=== PATIENT | male | born 1945 | race Caucasian/White ===

== ENCOUNTER 2016-12-30 10:26 | Inpatient (IN) | payer MEDICARE, OTHER ==
[~2016-12-30] VITALS: Ht 172.7 cm; Wt 96.0 kg
[~2016-12-30 10:26] MED LIST: ALLO300T2 PO; AMLO-147 PO; BENA20TA48 PO; FENO145T19 PO; FLUT16SP17 NASAL; FURO20TA3 PO; OMEG1CAP90 PO; SIMV20TA PO; SPIR25TA PO; WARF4TAB52 PO
[2016-12-30 12:12] LABS: ADD SCAN DIFF NO
[2016-12-30] MEDS ORDERED: FENO145T25 PO (12:21)
[2016-12-30] MEDS ORDERED: BENA5TAB2 PO (12:22)
[2016-12-30] MEDS ORDERED: FURO40TA4 PO (12:22)
[2016-12-30] MEDS ORDERED: METO50TA16 PO (12:23)
[2016-12-30 12:24] LABS: INR 1.78; PROTIME 20.9 Sec (12.2-14.2); PT RATIO 1.6
[2016-12-30] MEDS ORDERED: DIGO125T6 PO (12:24)
[2016-12-30 12:25] LABS: ABNORMAL IP MESSAGE 1; BASOPHILS % 0.8 % (0.0-2.0); EOSINOPHILS # 0.1 10^3/ul (0.0-0.5); HEMATOCRIT 40.2 % (42.0-52.0); HEMOGLOBIN 10.6 g/dl (14.0-18.0); LYMPHOCYTES # 1.3 10^3/ul (0.8-2.9); LYMPHOCYTES % 27.7 % (15.0-51.0); MEAN CORPUSCULAR HEMOGLOBIN 16.3 pg (29.0-33.0); MEAN CORPUSCULAR HGB CONC 26.4 g/dl (32.0-37.0); MEAN CORPUSCULAR VOLUME 61.8 fl (82.0-101.0); MEAN PLATELET VOLUME 9.2 fl (7.4-10.4); MONOCYTE # 0.4 10^3/ul (0.3-0.9); MONOCYTES % 8.6 % (0.0-11.0); NEUTROPHIL # 2.9 10^3/ul (1.6-7.5); NEUTROPHILS % 61.3 % (39.0-77.0); PARTIAL THROMBOPLASTIN TIME 33.4 Sec (25.0-35.0); PLATELET COUNT 195 10^3/UL (140-415); RED CELL DISTRIBUTION WIDTH 22.4 % (11.5-14.5); WHITE BLOOD COUNT 4.8 10^3/ul (4.8-10.8)
[2016-12-30] MEDS ORDERED: BENA20TA48 PO (12:25)
--- NOTE | 2016-12-30 12:26 | RADRPT ---
PROCEDURE: XR Chest. CLINICAL INDICATION: Chest Pain. TECHNIQUE: Single frontal view of the chest was obtained. COMPARISON: Chest x-ray from 06/16/2016 FINDINGS: Severe cardiomegaly is again noted as well as a large right pleural effusion with aeration of only t he right lung apex noted. Underlying atelectasis and / or infiltrate in the right lung cannot be ex cluded. There is a retrocardiac opacity due to atelectasis, infiltrate, and / or effusion. There is prominence of interstitial markings consistent with mild congestive changes. IMPRESSION: Large right pleural effusion. Retrocardiac opacity due to atelectasis, infiltrate, and / or effusion. Stable severe cardiomegaly and mild congestive changes. RPTAT: EE Physician Desire Date Time Electronically viewed and signed by Navarro Elizabeth Physician on 12/30/2016 12:26 /
[2016-12-30 12:28] LABS: ALANINE AMINOTRANSFERASE 31 IU/L (13-69); ALBUMIN 3.7 g/dl (3.3-4.9); ALBUMIN/GLOBULIN RATIO 1.42; ALKALINE PHOSPHATASE 101 IU/L (42-121); ANION GAP 8 (8-16); ASPARTATE AMINO TRANSFERASE 26 IU/L (15-46); BILIRUBIN,INDIRECT 0.3 mg/dl (0-1.1); BILIRUBIN,TOTAL 0.3 mg/dl (0.2-1.3); BLOOD UREA NITROGEN 31 mg/dl (7-20); CALCIUM 8.8 mg/dl (8.4-10.2); CARBON DIOXIDE 28 mmol/L (21-31); CHLORIDE 105 mmol/L (97-110); CREATININE 1.18 mg/dl (0.61-1.24); GLUCOSE 128 mg/dl (70-220); POTASSIUM 4.2 mmol/L (3.5-5.1); SODIUM 137 mmol/L (135-144); TOTAL PROTEIN 6.3 g/dl (6.1-8.1)
[2016-12-30 12:39] LABS: B-TYPE NATRIURETIC PEPTIDE 4460 PG/ML (0-125)
[2016-12-30 12:57] LABS: TROPONIN-I < 0.012 ng/ml (0.00-0.12)
[2016-12-30] MEDS ORDERED: WARF5TAB72 PO (13:15)
--- NOTE | 2016-12-30 13:32 | ERA ---
ER Documentation Chief Complaint Date/Time DATE: 12/30/16 TIME: 13:27 Chief Complaint SOB, AND ABDOMINAL BLOATING [id number] HPI This is a 71-year-old alcoholic who is here for gradual worsening of shortness of breath over the past 2-3 weeks. States she is having some dyspnea on exertion and orthopnea. He has no chest pain no fever no cough no abdominal pain no nausea vomiting diarrhea. ROS All systems reviewed and are negative except as per history of present illness. Medications Home Meds Reported Medications Warfarin Sodium* (Coumadin*) 5 Mg Tablet, 5 MG PO DAILY, TAB 12/30/16 Benazepril Hcl* (Benazepril Hcl*) 20 Mg Tablet, 20 MG PO DAILY, #30 TAB 12/30/16 Digoxin* (Lanoxin*) 0.125 Mg Tablet, 0.125 MG PO DAILY, TAB 12/30/16 Metoprolol Succinate* (Toprol XL*) 50 Mg Tab.er.24h, 50 MG PO DAILY, #30 TAB 12/30/16 Furosemide* (Furosemide*) 40 Mg Tablet, 40 MG PO DAILY, TAB 12/30/16 Fenofibrate Nanocrystallized* (Tricor*) 145 Mg Tablet, 160 MG PO DAILY, TAB 12/30/16 Amlodipine Besylate* (Amlodipine Besylate*) 10 Mg Tablet, 10 MG PO DAILY, #30 TAB 06/12/16 Allopurinol* (Allopurinol*) 300 Mg Tablet, 300 MG PO DAILY, TAB 06/12/16 Simvastatin* (Zocor*) 20 Mg Tablet, 20 MG PO QHS, #30 TAB 06/12/16 [place]-3 Fatty Acids/Fish Oil ([place] 3 1,000 mg Softgel) 1 Each Capsule, 2000 CAP PO BID, CAP 06/12/16 Discontinued Reported Medications Benazepril Hcl* (Benazepril Hcl*) 5 Mg Tablet, 5 MG PO DAILY, #30 TAB 12/30/16 Fluticasone Propionate* (Fluticasone Propionate* Nasal) 50 Mcg/Whitney - 16 Gm Whitney.susp, 1 SPRAY NASAL DAILY, #1 BOTTLE TO EACH NOSTRIL 06/12/16 Fenofibrate Nanocrystallized* (Fenofibrate*) 145 Mg Tablet, 145 MG PO DAILY, TAB 06/12/16 Benazepril Hcl* (Benazepril Hcl*) 20 Mg Tablet, 20 MG PO DAILY, #30 TAB 06/12/16 Discontinued Scripts Spironolactone* (Aldactone*) 25 Mg Tablet, 100 MG PO DAILY@06 for 30 Days, TAB Prov:SKYLA FINK 06/16/16 Warfarin Sodium* (Warfarin Sodium*) 4 Mg Tablet, 6 MG PO DAILY, #15 TAB Prov:JERRY BANKS MD 06/15/16 Furosemide* (Furosemide*) 20 Mg Tablet, 40 MG PO DAILY, #30 TAB Prov:JERRY BANKS MD 06/15/16 Allergies Allergies: Coded Allergies: No Known Allergy (Unverified , 12/30/16) PMhx/Soc History of Surgery: No Anesthesia Reaction: No Hx Neurological Disorder: No Hx Respiratory Disorders: No Hx Cardiac Disorders: Yes (CHF) Hx Psychiatric Problems: No Hx Miscellaneous Medical Probl: No Hx Alcohol Use: Yes Hx Substance Use: No Hx Tobacco Use: No Smoking Status: Never smoker FmHx Family History: No coronary disease Physical Exam Vitals Vital Signs Date Time Temp Pulse Resp B/P Pulse Ox O2 Delivery O2 Flow Rate FiO2 12/30/16 11:47 Nasal Cannula 2 12/30/16 10:40 97.7 73 24 151/67 90 Physical Exam Const: Well-developed, well-nourished Head: Atraumatic, normocephalic Eyes: Normal Conjunctiva, PERRLA, EOMI, normal sclera, no nystagmus ENT: Normal External Ears, Nose and Mouth, moist mucus membranes. Neck: Full range of motion. No meningismus, no lymphadenopathy. Resp: No increased work of breathing or respiratory distress there are no breath sounds in the right lung left is clear] Cardio: Regular rate and rhythm, no murmurs, S1 S2 present Abd: Soft, non tender x 4, non distended. Normal bowel sounds, no guarding or rebound, no pulsitile abdominal masses or bruits Skin: No petechiae or rashes, no ecchymosis , no maculopapular rash Back: No midline or flank tenderness Ext: No cyanosis, or edema, FROM x 4, normal inspection, neurovascularly intact x 4 Neur: Awake and alert, STR 5/5 x 4, sensation intact x 4, no focal findings, cerebellum intact Psych: Normal Mood and Affect Result Diagram: 12/30/16 1147 12/30/16 1147 Results 24 hrs Laboratory Tests Test 12/30/16 11:47 White Blood Count 4.810^3/ul Red Blood Count 6.5010^6/ul Hemoglobin 10.6g/dl Hematocrit 40.2% Mean Corpuscular Volume 61.8fl Mean Corpuscular Hemoglobin 16.3pg Mean Corpuscular Hemoglobin Concent 26.4g/dl Red Cell Distribution Width 22.4% Platelet Count 04555^3/UL Mean Platelet Volume 9.2fl Neutrophils % 61.3% Lymphocytes % 27.7% Monocytes % 8.6% Eosinophils % 1.0% Basophils % 0.8% Nucleated Red Blood Cells % 0.0/100WBC Neutrophils # 2.910^3/ul Lymphocytes # 1.310^3/ul Monocytes # 0.410^3/ul Eosinophils # 0.110^3/ul Basophils # 0.010^3/ul Nucleated Red Blood Cells # 0.010^3/ul Prothrombin Time 20.9Sec Prothrombin Time Ratio 1.6 INR International Normalized Ratio 1.78 Activated Partial Thromboplast Time 33.4Sec Sodium Level 137mmol/L Potassium Level 4.2mmol/L Chloride Level 105mmol/L Carbon Dioxide Level 28mmol/L Anion Gap 8 Blood Urea Nitrogen 31mg/dl Creatinine 1.18mg/dl Glucose Level 128mg/dl Calcium Level 8.8mg/dl Total Bilirubin 0.3mg/dl Direct Bilirubin 0.00mg/dl Indirect Bilirubin 0.3mg/dl Aspartate Amino Transf (AST/SGOT) 26IU/L Alanine Aminotransferase (ALT/SGPT) 31IU/L Alkaline Phosphatase 101IU/L Troponin I < 0.012ng/ml B-Type Natriuretic Peptide 4460PG/ML Total Protein 6.3g/dl Albumin 3.7g/dl Globulin 2.60g/dl Albumin/Globulin Ratio 1.42 Procedures/MDM PROCEDURE: XR Chest. CLINICAL INDICATION: Chest Pain. TECHNIQUE: Single frontal view of the chest was obtained. COMPARISON: Chest x-ray from 06/16/2016 FINDINGS: Severe cardiomegaly is again noted as well as a large right pleural effusion with aeration of only the right lung apex noted. Underlying atelectasis and / or infiltrate in the right lung cannot be excluded. There is a retrocardiac opacity due to atelectasis, infiltrate, and / or effusion. There is prominence of interstitial markings consistent with mild congestive changes. IMPRESSION: Large right pleural effusion. Retrocardiac opacity due to atelectasis, infiltrate, and / or effusion. Stable severe cardiomegaly and mild congestive changes. RPTAT: EE Navarro Elizabeth Physician Date Time Electronically viewed and signed by Navarro Elizabeth Physician on 12/30/2016 12:26 RA/ CC: RERE BRISCOE DO EKG: Rate/Rhythm: Atrial fibrillation with PVCs, right axis deviation QRS, ST, QT: NORMAL IL, QRS, QT] Impression: Atrial fibrillation Patient has a large right pleural effusion and alcohol abuse. The effusion is probably from the liver/hydrothorax. We will admit the patient for pleuracentesis further workup Departure Diagnosis: Primary Impression: Recurrent right pleural effusion Condition: Stable RERE BRISCOE DO Dec 30, 2016 13:32
[2016-12-30] MEDS ORDERED: ONDANSETRON 4 MG INJ IV PRN (14:00)
[2016-12-30] MEDS ORDERED: ACETAMINOPHEN 325 MG TAB PO PRN ×2 (14:00→16:30)
[2016-12-30] MEDS ORDERED: ONDANSETRON 4 MG TAB PO PRN (16:30)
[2016-12-30] MEDS ORDERED: NITROGLYCERIN (SL) 0.4 MG TAB SL PRN (16:30)
[2016-12-30] MEDS ORDERED: NACL 0.9% 3 ML SYG IV SCH (16:30)
[2016-12-30] MEDS ORDERED: morphine 2 MG INJ IV PRN (16:30)
[2016-12-30] MEDS ORDERED: LORAZEPAM 0.5 MG TAB PO PRN (16:30)
[2016-12-30] MEDS ORDERED: BISACODYL (EC) 5 MG TAB PO PRN (16:30)
[2016-12-30] MEDS ORDERED: DOCUSATE SODIUM 100 MG CAP PO PRN (16:30)
[2016-12-30] MEDS: CEFTRIAXONE 1 GM/50 ML (PMX) 50 ML IVPB SCH (17:11)
[2016-12-30] MEDS ORDERED: ALBUTEROL/IPRATROPIUM (NEB) 3 ML AMP HHN PRN (17:30)
[2016-12-30 18:06] VITALS: Ht 172.7 cm; Wt 96.0 kg
--- NOTE | 2016-12-30 18:08 | HP ---
DATE OF ADMISSION: 12/30/2016 CONSULTANTS: 1. Dr. Pritesh Garcia 2. Dr. John Craig. CHIEF COMPLAINT: Shortness of breath. HISTORY OF PRESENT ILLNESS: This is a 71-year-old gentleman with past medical history of asthma, al cohol dependency, congestive heart failure, essential hypertension, gout, atrial fibrillation, dysli pidemia and chronic anticoagulation, who presents to [facility] secondary to havin g gradual worsening of shortness of breath x2 to 3 weeks. According to the patient's son-in-law, th e patient has been drinking 3 to 4 big cans of beers every day and has been having worsening of dysp keira on exertion, orthopnea and paroxysmal nocturnal dyspnea. The patient denies having any chest pa ins, fever, cough, abdominal pain, nausea, vomiting, diarrhea, or any other discomfort. Upon arrival to emergency room, a chest x-ray was obtained which demonstrated a large right pleural effusion, retrocardiac opacity due to atelectasis/infiltrate or effusion, stable severe cardiomegaly with mild congestive changes. [facility] and showed normal left ventricular systolic function, norm al left ventricular cavity size, moderate concentric left ventricular hypertrophy, ejection fraction of 55%, normal right ventricular size, severe enlargement of the left and right atrium with mild mi tral valve regurgitation, estimated peak PA systolic pressure of 49 mmHg, with a normal pericardium. Today, the patient was treated with breathing treatment, and pulmonology and cardiology have been consulted at this time. At this time, the patient continues to complain of having shortness of sobia th with worsening of his breathing status while he is lying in the supine position. PAST MEDICAL AND SURGICAL HISTORY: As above per HPI. MEDICATIONS: 1. Allopurinol. 2. Amlodipine. 3. Benazepril. 4. Digoxin. 5. Tricor. 6. Lasix. 7. Metoprolol succinate. 8. [place]-3. 9. Zocor. 10. Coumadin. ALLERGIES: NO KNOWN DRUG ALLERGIES. FAMILY HISTORY: Noncontributory. SOCIAL HISTORY: Positive for history of smoking half a pack of cigarettes per day. Positive for hi story of alcohol use, 3 to 4 big cans of beer per day. No illicit drugs. REVIEW OF SYSTEMS: As above per HPI. Otherwise, 12-point review of systems was found to be negativ e. PHYSICAL EXAMINATION: VITAL SIGNS: Temperature 97.7, pulse 70, respirations 25, blood pressure 149/83, oxygen saturation 93% on 2 liters via nasal cannula. GENERAL: The patient is lying in bed comfortably without any distress. He is awake, alert, oriente d. He is able to answer my questions properly. Body habitus mildly overweight. EYES AND ENT: Conjunctivae and lids are normal. Pupils are normal. Extraocular normal. Hearing g rossly normal. Lips, teeth and gums are normal. Oral mucosa is mildly dry. NECK: Supple. Trachea is midline. No lymphadenopathy. RESPIRATORY: Effort is normal. Decreased breath sounds bilateral lower lung carrasco, right greater than left, positive for rales, rhonchi. CARDIOVASCULAR: Normal S1, S2. Irregular rhythm and rate. Trace bilateral lower extremity edema. GASTROINTESTINAL: Abdomen is soft, nontender, not distended. Bowel sounds present. No guarding, n o rebound. GENITOURINARY: Deferred. MUSCULOSKELETAL: Upper and lower extremities within normal limits. NEUROLOGIC: Cranial nerves II through XII are grossly intact. PSYCHIATRIC: Normal judgment and insight. Alert and oriented x3. Mood and affect is normal. LABORATORY DATA: WBC 4.8, hemoglobin 10.6, hematocrit 40.2, platelets 195, MCV 61.8. Sodium 137, p otassium 4.2, chloride 104, bicarbonate 28, BUN 31, creatinine 1.18, glucose 128, calcium 8.8. LFTs are within normal limits. Troponin negative. BNP 4460. Chest x-ray: Right-sided pleural effusion. ASSESSMENT AND PLAN: 1. Shortness of breath likely secondary to chronic obstructive pulmonary disease exacerbation versu s congestive heart failure exacerbation with a history of alcohol abuse. 2. Congestive heart failure exacerbation. Cardiology has been consulted. This could be secondary to fluid overload. We will place the patient on IV Lasix. Follow cardiology recommendation. 3. Microcytic anemia. Follow up iron panel. Follow up CBC in a.m. 4. Essential hypertension, well controlled on medical management. Continue benazepril. amlodipin e, and metoprolol. 5. Atrial fibrillation, rate controlled on metoprolol and digoxin. At this time, we will hold Coum chip secondary to possible upcoming procedure. We will place the patient on Lovenox. 6. Gout. Continue allopurinol. 7. Dyslipidemia. Continue statin. 8. We will continue to monitor patient closely. Further recommendations, management and treatment as per clinical course. 9. For history of alcoholism, education was provided. The patient has been started on folic acid, thiamine and multivitamin. Dictated By: EFE NUNES/ADEN Conf#: [id number] DID#: [id number]
[2016-12-30] MEDS: LEVOFLOXACIN 500MG/D5W (PMX) 100 ML IVPB SCH (18:23)
[2016-12-30] MEDS: FUROSEMIDE 20 MG INJ IV SCH (18:33)
[2016-12-30 18:56] LABS: CK-MB 2.34 ng/ml (0.0-2.4)
[2016-12-30 18:57] LABS: TROPONIN-I 0.014 ng/ml (0.00-0.12)
[2016-12-30 20:15] VITALS: BP 148/68; RESP 20
[2016-12-30] MEDS: FISH OIL 1,000 MG CAP PO SCH (20:55)
[2016-12-30] MEDS: ATORVASTATIN 10 MG TAB PO SCH (20:55)
[2016-12-30] MEDS: ENOXAPARIN 40 MG/0.4 ML SYG SC SCH (20:56)
[2016-12-30] MEDS: SALMETEROL/FLUTICASONE 250/50 INHA INH SCH (21:52)
[2016-12-31 00:37] LABS: TROPONIN-I 0.013 ng/ml (0.00-0.12)
[2016-12-31 00:42] LABS: CK-MB 2.07 ng/ml (0.0-2.4)
[2016-12-31] MEDS: PANTOPRAZOLE (EC) 40 MG TAB PO SCH (05:56)
[2016-12-31] MEDS: FUROSEMIDE 20 MG INJ IV SCH (06:03)
--- NOTE | 2016-12-31 07:03 | RADRPT ---
PROCEDURE: XR Chest. CLINICAL INDICATION: Pleural effusion TECHNIQUE: Portable single view of the chest COMPARISON: 12/30 FINDINGS: Lung volumes are slightly improved. Enlarged cardiopericardial silhouette, pulmonary vascular conge stion and probable interstitial edema again seen diffuse alveolar infiltrate or edema of the right m id to lower lung zone. At least moderate right pleural effusion. Improved left lower lobe aeration with no visible left pleural effusion. Degenerative change of the spine. IMPRESSION: Slightly improved lung volumes are improved left lower lobe aeration. Otherwise stable exam. RPTAT: HLBE Physician Lisa Date Time Electronically viewed and signed by Aretha Ceja Physician on 12/31/2016 07:02 LE/
[2016-12-31 07:48] LABS: ADD SCAN DIFF NO
[2016-12-31 07:57] LABS: ABNORMAL IP MESSAGE 1; BASOPHILS % 0.4 % (0.0-2.0); EOSINOPHILS % 0.6 % (0.0-7.0); HEMATOCRIT 40.7 % (42.0-52.0); HEMOGLOBIN 10.6 g/dl (14.0-18.0); LYMPHOCYTES % 20.2 % (15.0-51.0); MEAN CORPUSCULAR HEMOGLOBIN 16.2 pg (29.0-33.0); MEAN CORPUSCULAR VOLUME 62.3 fl (82.0-101.0); MONOCYTE # 0.4 10^3/ul (0.3-0.9); MONOCYTES % 8.2 % (0.0-11.0); NEUTROPHIL # 3.6 10^3/ul (1.6-7.5); NUCLEATED RED BLOOD CELLS% 0.4 /100WBC (0.0-0.0); PLATELET COUNT 182 10^3/UL (140-415); RED BLOOD COUNT 6.53 10^6/ul (4.70-6.10); RED CELL DISTRIBUTION WIDTH 22.5 % (11.5-14.5); WHITE BLOOD COUNT 5.1 10^3/ul (4.8-10.8)
[2016-12-31 08:00] VITALS: BP 168/74; RESP 24
[2016-12-31 08:14] LABS: INR 1.73; PROTIME 20.4 Sec (12.2-14.2); PT RATIO 1.6
[2016-12-31 08:18] LABS: IRON 13 ug/dl (35-150)
[2016-12-31 08:28] LABS: TOTAL IRON BINDING CAPACITY 403 ug/dl (241-421)
[2016-12-31 08:31] LABS: TROPONIN-I 0.022 ng/ml (0.00-0.12)
[2016-12-31 08:32] LABS: CK-MB 1.71 ng/ml (0.0-2.4)
[2016-12-31] MEDS ORDERED: AMLODIPINE 10 MG TAB PO SCH (09:00)
[2016-12-31] MEDS ORDERED: FUROSEMIDE 40 MG TAB PO SCH (09:00)
[2016-12-31] MEDS: ENOXAPARIN 40 MG/0.4 ML SYG SC SCH ×2 (09:00→20:12)
[2016-12-31] MEDS ORDERED: BENAZEPRIL 20 MG TAB PO SCH (09:00)
[2016-12-31 09:07] LABS: POTASSIUM 4.1 mmol/L (3.5-5.1)
[2016-12-31 09:09] LABS: CREATININE 0.99 mg/dl (0.61-1.24)
[2016-12-31] MEDS: FISH OIL 1,000 MG CAP PO SCH ×2 (09:09→20:11)
[2016-12-31] MEDS: ALLOPURINOL 300 MG TAB PO SCH (09:09)
[2016-12-31] MEDS: MULTIVITAMINS THERAPEUTIC TAB PO SCH (09:09)
[2016-12-31] MEDS: THIAMINE 100 MG TAB PO SCH (09:10)
[2016-12-31] MEDS: FOLIC ACID 1 MG TAB PO SCH (09:10)
[2016-12-31 09:11] LABS: CALCIUM 8.8 mg/dl (8.4-10.2); MAGNESIUM 1.9 mg/dl (1.7-2.5)
[2016-12-31] MEDS: FENOFIBRATE 145 MG TAB PO SCH (09:11)
[2016-12-31] MEDS: METOPROLOL (XL) 50 MG TAB PO SCH (09:11)
[2016-12-31] MEDS: SALMETEROL/FLUTICASONE 250/50 INHA INH SCH ×2 (09:12→20:58)
[2016-12-31 10:03] LABS: THYROID STIMULATING HORMONE 1.18 MIU/L (0.465-4.680)
[2016-12-31] MEDS ORDERED: PHYTONADIONE (1 MG/ML PO SYG) PO ONE (11:00)
[2016-12-31] MEDS: DIGOXIN 0.125 MG TAB PO SCH (14:45)
--- NOTE | 2016-12-31 15:20 | PN ---
Date/Time of Note Date/Time of Note DATE: 12/31/16 TIME: 15:16 Assessment/Plan VTE Prophylaxis VTE Prophylaxis Intervention: other Lines/Catheters IV [facility]from [facility] Saline [facility] Urinary Cath still in place: No Assessment/Plan Chief Complaint/Hosp Course ASSESSMENT AND PLAN: 1. Shortness of breath likely secondary to chronic obstructive pulmonary disease exacerbation versus congestive heart failure exacerbation with a history of alcohol abuse. Improving status post diuretic, plan for thoracocentesis this afternoon when INR is better controlled 2. Congestive heart failure exacerbation. Cardiology has been consulted. This could be secondary to fluid overload. We will place the patient on IV Lasix. Follow cardiology recommendation. 3. Microcytic anemia. Follow up iron panel. Follow up CBC in a.m. 4. Essential hypertension, well controlled on medical management. Continue benazepril. amlodipine, and metoprolol. 5. Atrial fibrillation, rate controlled on metoprolol and digoxin. At this time, we will hold Coumadin secondary to possible upcoming procedure. Continue Lovenox. 6. Gout. Continue allopurinol. 7. Dyslipidemia. Continue statin. 8. Right-sided pleural effusion. Plan for right-sided thoracocentesis 9. For history of alcoholism, education was provided. The patient has been started on folic acid, thiamine and multivitamin. We will continue to monitor patient closely. Further recommendations, management and treatment as per clinical course. Problems: Subjective 24 Hr Interval Summary Free Text/Dictation Patient denies of having any chest pain Shortness of breath has been improving Denies of any abdominal pain The thoracocentesis was placed on hold secondary to supratherapeutic INR Exam/Review of Systems Vital Signs Vitals Vital Signs Date Time Temp Pulse Resp B/P Pulse Ox O2 Delivery O2 Flow Rate FiO2 12/31/16 08:00 98.6 77 24 168/74 92 12/30/16 15:00 Nasal Cannula 2.0 Intake and Output 12/30/16 12/30/16 12/31/16 15:00 23:00 07:00 Intake Total 100 ml 1150 ml Output Total 1850 ml Balance 100 ml -700 ml Exam General: The patient is well-developed, Not in acute distress. HEENT: Atraumatic, normocephalic. The pupils are equal and round . Neck: Supple with full range of motion. Chest: Normal expansion of the thorax during inspiration Lungs: Decreased breath sounds bilateral lower lung field Heart: Normal S1-S2, Regular rhythm and rate. Abdomen: Soft , nontender, nondistended , bowel sounds are present. Extremities: Normal to inspection, no edema no cyanosis Neurologic: Normal mental status,The patient is awake, alert and oriented . Results Result Diagram: 12/31/1627 12/31/16 0727 Results 24 hrs Laboratory Tests Test 12/30/16 18:22 12/30/16 18:37 12/30/16 22:43 12/31/16 07:17 Creatine Kinase 55 28 24 Creatine Kinase Index 4.3 7.4 7.1 Creatinine Kinase MB (Mass) 2.34 2.07 1.71 Troponin I 0.014 0.013 0.022 Bedside Glucose 140 Test 12/31/16 07:27 White Blood Count 5.1 Red Blood Count 6.53 H Hemoglobin 10.6 L Hematocrit 40.7 L Mean Corpuscular Volume 62.3 L Mean Corpuscular Hemoglobin 16.2 L Mean Corpuscular Hemoglobin Concent 26.0 L Red Cell Distribution Width 22.5 H Platelet Count 182 Mean Platelet Volume 9.0 Neutrophils % 70.0 Lymphocytes % 20.2 Monocytes % 8.2 Eosinophils % 0.6 Basophils % 0.4 Nucleated Red Blood Cells % 0.4 H Neutrophils # 3.6 Lymphocytes # 1.0 Monocytes # 0.4 Eosinophils # 0.0 Basophils # 0.0 Nucleated Red Blood Cells # 0.0 Prothrombin Time 20.4 H Prothrombin Time Ratio 1.6 INR International Normalized Ratio 1.73 Sodium Level 141 Potassium Level 4.1 Chloride Level 101 Carbon Dioxide Level 29 Anion Gap 15 # Blood Urea Nitrogen 26 H Creatinine 0.99 Glucose Level 103 Calcium Level 8.8 Magnesium Level 1.9 Iron Level 13 L Total Iron Binding Capacity 403 Percent Iron Saturation 3 L Ferritin 13.3 Thyroid Stimulating Hormone (TSH) 1.180 Medications Medications Current Medications Allopurinol (Zyloprim) 300 mg DAILY PO Last administered on 12/31/16 09:09; Admin Dose 300 MG; Start 12/31/16 at 09:00 Amlodipine Besylate (Norvasc) 10 mg DAILY PO Last administered on 12/31/16 09: 09; Admin Dose 10 MG; Start 12/31/16 at 09:00 Benazepril HCl (Lotensin) 20 mg DAILY PO Last administered on 12/31/16 09:11; Admin Dose 20 MG; Start 12/31/16 at 09:00 Digoxin (Digoxin) 0.125 mg 13 PO Last administered on 12/31/16 14:45; Admin Dose 0.125 MG; Start 12/31/16 at 13:00 Fenofibrate (Tricor) 145 mg DAILY PO Last administered on 12/31/16 09:11; Admin Dose 145 MG; Start 12/31/16 at 09:00 Metoprolol Succinate (Toprol Xl) 50 mg DAILY PO Last administered on 12/31/16 09:11; Admin Dose 50 MG; Start 12/31/16 at 09:00 Fish Oil (Fish Oil) 2,000 mg BID PO Last administered on 12/31/16 09:09; Admin Dose 2,000 MG; Start 12/30/16 at 21:00 Atorvastatin Calcium (Lipitor) 10 mg DAILY@21 PO Last administered on 20:55; Admin Dose 10 MG; Start 12/30/16 at 21:00 Lorazepam (Ativan) 0.5 mg Q8H PRN PO ANXIETY; Start 12/30/16 at 16:30 Ondansetron HCl (Zofran Tab) 4 mg Q6H PRN PO NAUSEA AND/OR VOMITING; Start at 16:30 Nitroglycerin (Nitroglycerin (Sl Tab) 0.4 Mg) 1 tab Q5M PRN SL CHEST PAIN; Start 12/30/16 at 16:30 Acetaminophen (Tylenol Tab) 650 mg Q6H PRN PO PAIN LEVEL 1-3 OR FEVER; Start at 16:30 Morphine Sulfate (morphine) 1 mg Q4H PRN IV PAIN LEVEL 7-10; Start 12/30/16 at 16:30 Docusate Sodium (Colace) 100 mg Q12H PRN PO CONSTIPATION; Start 12/30/16 at 16: 30 Bisacodyl (Dulcolax) 5 mg DAILY PRN PO CONSTIPATION; Start 12/30/16 at 16:30 Pantoprazole (Protonix Tab) 40 mg DAILY@06 PO Last administered on 12/31/16 05 :56; Admin Dose 40 MG; Start 12/31/16 at 06:00 Enoxaparin Sodium 80 mg 80 mg BID SC Last administered on 12/30/16 20:56; Admin Dose 80 MG; Start 12/30/16 at 21:00 Ceftriaxone Sodium 50 ml @ 100 mls/hr Q24H IVPB Last administered on 17:11; Admin Dose 100 MLS/HR; Start 12/30/16 at 16:30 Levofloxacin/ Dextrose (Levaquin 500mg/ D5W 100 ml (Pmx)) 100 ml @ 100 mls/hr Q24H IVPB Last administered on 12/30/16 18:23; Admin Dose 100 MLS/HR; Start at 16:30 Thiamine HCl (Vitamin B1) 100 mg DAILY PO Last administered on 12/31/16 09:10 ; Admin Dose 100 MG; Start 12/31/16 at 09:00 Folic Acid (Folic Acid) 1 mg DAILY PO Last administered on 12/31/16 09:10; Admin Dose 1 MG; Start 12/31/16 at 09:00 Multivitamins Therapeutic (Theragran) 1 tab DAILY PO Last administered on 09:09; Admin Dose 1 TAB; Start 12/31/16 at 09:00 Salmeterol Xinafoate/ Fluticasone (Advair 250/50 Diskus) 1 inh BID INH Last administered on 12/31/16 09:12; Admin Dose 1 INH; Start 12/30/16 at 21:00 EFE PULIDO MD Dec 31, 2016 15:20
[2016-12-31 15:55] LABS: INR 1.71; PROTIME 20.2 Sec (12.2-14.2); PT RATIO 1.6
--- NOTE | 2016-12-31 16:31 | CONS ---
DATE OF ADMISSION: 12/30/2016 DATE OF CONSULTATION: 12/31/2016 REASON FOR CONSULTATION: Shortness of breath, abnormal chest x-ray. HISTORY OF PRESENT ILLNESS: This is a 71-year-old gentleman admitted on 12/30/2016 and date of cons ult 12/31/2016 for shortness of breath, orthopnea, PND, found on admission to have moderate to large right pleural effusion. Upon further questioning, the patient states he drinks approximately 3 to 4 large cans of beer daily. Also, has a past medical history of hypertension, hyperlipidemia, gout, congestive cardiac failure and alcohol dependency. He last drank day prior to admission. SOCIAL HISTORY: Tobacco use, but no illicit drug use. MEDICATIONS: 1. Amlodipine. 2. Benazepril 3. Digoxin. 4. Lasix. 5. Metoprolol. 6. Coumadin. MEDICATIONS: Per chart. ALLERGIES: None. PHYSICAL EXAMINATION: GENERAL: Elderly-appearing gentleman, appears comfortable at rest, no acute distress. VITAL SIGNS: Currently afebrile, pulse is 77, blood pressure 168/74, O2 saturation 96% on FIO2 of 2 liters. NECK: Supple. No JVD or lymphadenopathy. CARDIAC: S1, S2, no added sounds or murmurs. CHEST: Diminished air entry bilaterally. ABDOMEN: Soft, nontender. No guarding or rebound. EXTREMITIES: No cyanosis, clubbing, or edema. NEUROLOGIC: Generalized weakness. LABORATORY DATA: White count 5.1, hemoglobin 10.6, platelets of 182. Chemistry within normal limit s. INR 1.71. 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 He has evidence of coagulopathy with elevat ed INR, suggestive of liver dysfunction, but also in addition apparently takes Coumadin for atrial f ibrillation. 1. Given his large right pleural effusion, the patient will need thoracentesis with pleural fluid s tudies. 2. Continue current antibiotics of Rocephin and Levaquin. 3. Continued deep venous thrombosis and gastrointestinal prophylaxis. 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 5. Smoking cessation advised. Dictated By: TYLOR BONILLA/ADEN Conf#: [id number] DID#: [id number]
[2016-12-31] MEDS: CEFTRIAXONE 1 GM/50 ML (PMX) 50 ML IVPB SCH (17:54)
[2016-12-31] MEDS: FUROSEMIDE 40 MG INJ IV SCH (18:05)
--- NOTE | 2016-12-31 18:11 | CONS ---
Date/Time of Note Date/Time of Note DATE: 12/31/16 TIME: 18:05 Assessment/Plan Assessment/Plan Additional Assessment/Plan Acute decompensated diastolic and valvular cardiomyopathy Preserved ejection fraction Mitral, tricuspid, aortic valve regurgitation Pleural effusion Liver cirrhosis Atrial fibrillation -Patient with large right pleural effusion. Awaiting thoracentesis. Continue IV diuretics as blood pressure and renal function permits. Increased dose of SILVA inhibitor, serial cardiac enzymes remain negative. Continue beta-flor. Given congestive heart failure and actively diuresing, patient should be on telemetry. Consultation Date/Type/Reason Admit Date/Time Dec 30, 2016 at 13:34 Type of Consultation: cv Reason for Consultation Shortness of breath and pleural effusion Hx of Present Illness This is a 71-year-old male who presents with worsening shortness of breath, increased abdominal girth and lower extremity edema regressing over 1 month. He denies chest pain. Symptoms are at rest as well as with exertional shortness of breath. He denies any fevers or chills, he does complain of cough which is minimally productive. Denies any abdominal pain except for increased abdominal girth. He denies lightheadedness or dizziness, syncope or near syncope, palpitations. 12 point review of systems was performed with all pertinent positives and negatives mentioned above and all else negative Past Medical History Medical History: congestive heart failure, high cholesterol, hypertension Past Surgical History Past Surgical Hx: no surgical history Family History Significant Family History: no pertinent family hx Social History Current alcohol use Smoking Status: Never smoker Exam/Review of Systems Vital Signs Vitals Vital Signs Date Time Temp Pulse Resp B/P Pulse Ox O2 Delivery O2 Flow Rate FiO2 12/31/16 08:00 98.6 77 24 168/74 92 12/30/16 15:00 Nasal Cannula 2.0 Intake and Output 12/30/16 12/30/16 12/31/16 15:00 23:00 07:00 Intake Total 100 ml 1150 ml Output Total 1850 ml Balance 100 ml -700 ml Exam No apparent distress Constitutional: alert, oriented Neck: supple Respiratory: other (Coarse breath sounds, decreased at right and mid base, mild scattered crackles and wheezing) Cardiovascular: irregular rhythm, other (S1-S2 heard, systolic murmur) Gastrointestinal: bowel sounds, distended, non-tender, soft Extremities: edema, other (No guarding) Results Result Diagram: 12/31/1672612/31/16726 Results 24 hrs Laboratory Tests Test 12/30/16 18:22 12/30/16 18:37 12/30/16 22:43 12/31/16 07:17 Creatine Kinase 55 28 24 Creatine Kinase Index 4.3 7.4 7.1 Creatinine Kinase MB (Mass) 2.34 2.07 1.71 Troponin I 0.014 0.013 0.022 Bedside Glucose 140 Test 12/31/16 07:27 12/31/16 15:25 White Blood Count 5.1 Red Blood Count 6.53 H Hemoglobin 10.6 L Hematocrit 40.7 L Mean Corpuscular Volume 62.3 L Mean Corpuscular Hemoglobin 16.2 L Mean Corpuscular Hemoglobin Concent 26.0 L Red Cell Distribution Width 22.5 H Platelet Count 182 Mean Platelet Volume 9.0 Neutrophils % 70.0 Lymphocytes % 20.2 Monocytes % 8.2 Eosinophils % 0.6 Basophils % 0.4 Nucleated Red Blood Cells % 0.4 H Neutrophils # 3.6 Lymphocytes # 1.0 Monocytes # 0.4 Eosinophils # 0.0 Basophils # 0.0 Nucleated Red Blood Cells # 0.0 Prothrombin Time 20.4 H 20.2 H Prothrombin Time Ratio 1.6 1.6 INR International Normalized Ratio 1.73 1.71 Sodium Level 141 Potassium Level 4.1 Chloride Level 101 Carbon Dioxide Level 29 Anion Gap 15 # Blood Urea Nitrogen 26 H Creatinine 0.99 Glucose Level 103 Calcium Level 8.8 Magnesium Level 1.9 Iron Level 13 L Total Iron Binding Capacity 403 Percent Iron Saturation 3 L Ferritin 13.3 Thyroid Stimulating Hormone (TSH) 1.180 Medications Medications Current Medications Allopurinol (Zyloprim) 300 mg DAILY PO Last administered on 12/31/16 09:09; Admin Dose 300 MG; Start 12/31/16 at 09:00 Amlodipine Besylate (Norvasc) 10 mg DAILY PO Last administered on 12/31/16 09: 09; Admin Dose 10 MG; Start 12/31/16 at 09:00 Benazepril HCl (Lotensin) 20 mg DAILY PO Last administered on 12/31/16 09:11; Admin Dose 20 MG; Start 12/31/16 at 09:00 Digoxin (Digoxin) 0.125 mg 13 PO Last administered on 12/31/16 14:45; Admin Dose 0.125 MG; Start 12/31/16 at 13:00 Fenofibrate (Tricor) 145 mg DAILY PO Last administered on 12/31/16 09:11; Admin Dose 145 MG; Start 12/31/16 at 09:00 Metoprolol Succinate (Toprol Xl) 50 mg DAILY PO Last administered on 12/31/16 09:11; Admin Dose 50 MG; Start 12/31/16 at 09:00 Fish Oil (Fish Oil) 2,000 mg BID PO Last administered on 12/31/16 09:09; Admin Dose 2,000 MG; Start 12/30/16 at 21:00 Atorvastatin Calcium (Lipitor) 10 mg DAILY@21 PO Last administered on 20:55; Admin Dose 10 MG; Start 12/30/16 at 21:00 Lorazepam (Ativan) 0.5 mg Q8H PRN PO ANXIETY; Start 12/30/16 at 16:30 Ondansetron HCl (Zofran Tab) 4 mg Q6H PRN PO NAUSEA AND/OR VOMITING; Start at 16:30 Nitroglycerin (Nitroglycerin (Sl Tab) 0.4 Mg) 1 tab Q5M PRN SL CHEST PAIN; Start 12/30/16 at 16:30 Acetaminophen (Tylenol Tab) 650 mg Q6H PRN PO PAIN LEVEL 1-3 OR FEVER; Start at 16:30 Morphine Sulfate (morphine) 1 mg Q4H PRN IV PAIN LEVEL 7-10; Start 12/30/16 at 16:30 Docusate Sodium (Colace) 100 mg Q12H PRN PO CONSTIPATION; Start 12/30/16 at 16: 30 Bisacodyl (Dulcolax) 5 mg DAILY PRN PO CONSTIPATION; Start 12/30/16 at 16:30 Pantoprazole (Protonix Tab) 40 mg DAILY@06 PO Last administered on 12/31/16 05 :56; Admin Dose 40 MG; Start 12/31/16 at 06:00 Enoxaparin Sodium 80 mg 80 mg BID SC Last administered on 12/30/16 20:56; Admin Dose 80 MG; Start 12/30/16 at 21:00 Ceftriaxone Sodium 50 ml @ 100 mls/hr Q24H IVPB Last administered on 17:54; Admin Dose 100 MLS/HR; Start 12/30/16 at 16:30 Levofloxacin/ Dextrose (Levaquin 500mg/ D5W 100 ml (Pmx)) 100 ml @ 100 mls/hr Q24H IVPB Last administered on 12/30/16 18:23; Admin Dose 100 MLS/HR; Start at 16:30 Thiamine HCl (Vitamin B1) 100 mg DAILY PO Last administered on 12/31/16 09:10 ; Admin Dose 100 MG; Start 12/31/16 at 09:00 Folic Acid (Folic Acid) 1 mg DAILY PO Last administered on 12/31/16 09:10; Admin Dose 1 MG; Start 12/31/16 at 09:00 Multivitamins Therapeutic (Theragran) 1 tab DAILY PO Last administered on 09:09; Admin Dose 1 TAB; Start 12/31/16 at 09:00 Salmeterol Xinafoate/ Fluticasone (Advair 250/50 Diskus) 1 inh BID INH Last administered on 12/31/16 09:12; Admin Dose 1 INH; Start 12/30/16 at 21:00 Procedures Procedures Atrial fibrillation at 61 bpm, QRS 108 ms, nonspecific STT wave abnormalities Pritesh Garcia DO Dec 31, 2016 18:11
[2016-12-31] MEDS: LEVOFLOXACIN 500MG/D5W (PMX) 100 ML IVPB SCH (18:22)
[2016-12-31 20:00] VITALS: BP 137/75; PULSE 70; RESP 18
[2016-12-31] MEDS: BENAZEPRIL 20 MG TAB PO SCH (20:11)
[2016-12-31] MEDS: ATORVASTATIN 10 MG TAB PO SCH (20:11)
[2017-01-01] VITALS (12 sets, daily range): BP systolic 124–170; BP diastolic 60–79; PULSE 70–81; RESP 18–19
[2017-01-01] MEDS: PANTOPRAZOLE (EC) 40 MG TAB PO SCH (06:03)
[2017-01-01] MEDS: FUROSEMIDE 40 MG INJ IV SCH ×2 (06:03→17:36)
[2017-01-01] MEDS: SALMETEROL/FLUTICASONE 250/50 INHA INH SCH ×2 (08:53→21:54)
[2017-01-01] MEDS: FENOFIBRATE 145 MG TAB PO SCH (08:54)
[2017-01-01] MEDS: FISH OIL 1,000 MG CAP PO SCH ×2 (08:54→21:53)
[2017-01-01] MEDS: ALLOPURINOL 300 MG TAB PO SCH (08:54)
[2017-01-01] MEDS: FOLIC ACID 1 MG TAB PO SCH (08:55)
[2017-01-01] MEDS: MULTIVITAMINS THERAPEUTIC TAB PO SCH (08:55)
[2017-01-01] MEDS: BENAZEPRIL 20 MG TAB PO SCH ×2 (08:56→21:54)
[2017-01-01] MEDS: AMLODIPINE 5 MG TAB PO SCH (08:57)
[2017-01-01] MEDS: METOPROLOL (XL) 50 MG TAB PO SCH (08:57)
[2017-01-01] MEDS: ENOXAPARIN 40 MG/0.4 ML SYG SC SCH ×2 (09:05→22:01)
[2017-01-01 10:32] LABS: ADD SCAN DIFF NO
[2017-01-01 10:37] LABS: ABNORMAL IP MESSAGE 1; BASOPHILS % 0.2 % (0.0-2.0); EOSINOPHILS % 0.8 % (0.0-7.0); HEMATOCRIT 38.6 % (42.0-52.0); LYMPHOCYTES # 1.3 10^3/ul (0.8-2.9); LYMPHOCYTES % 26.4 % (15.0-51.0); MEAN CORPUSCULAR HGB CONC 25.9 g/dl (32.0-37.0); MEAN CORPUSCULAR VOLUME 61.9 fl (82.0-101.0); MEAN PLATELET VOLUME 9.1 fl (7.4-10.4); MONOCYTE # 0.5 10^3/ul (0.3-0.9); NEUTROPHIL # 2.9 10^3/ul (1.6-7.5); NEUTROPHILS % 61.2 % (39.0-77.0); PLATELET COUNT 175 10^3/UL (140-415); RED BLOOD COUNT 6.24 10^6/ul (4.70-6.10); RED CELL DISTRIBUTION WIDTH 21.9 % (11.5-14.5); WHITE BLOOD COUNT 4.7 10^3/ul (4.8-10.8)
[2017-01-01 10:47] LABS: INR 1.36; PROTIME 16.8 Sec (12.2-14.2); PT RATIO 1.3
[2017-01-01 10:50] LABS: POTASSIUM 3.9 mmol/L (3.5-5.1)
[2017-01-01 10:52] LABS: CREATININE 1.08 mg/dl (0.61-1.24)
[2017-01-01 10:53] LABS: CALCIUM 8.9 mg/dl (8.4-10.2)
[2017-01-01] MEDS: THIAMINE 100 MG TAB PO SCH (12:43)
[2017-01-01] MEDS: DIGOXIN 0.125 MG TAB PO SCH (12:45)
--- NOTE | 2017-01-01 12:46 | CONS ---
Date/Time of Note Date/Time of Note DATE: 01/01/17 TIME: 12:45 Consult Date/Type/Reason Admit Date/Time Dec 30, 2016 at 13:34 Initial Consult Date Type of Consultation: pulmonary Subjective Patient remains stable no new events pending thoracentesis Objective Vital Signs Date Time Temp Pulse Resp B/P Pulse Ox O2 Delivery O2 Flow Rate FiO2 01/01/17 12:20 71 01/01/17 12:03 2.0 01/01/17 11:51 98.0 19 170/79 90 12/31/16 20:37 Nasal Cannula Intake and Output 12/31/16 12/31/16 01/01/17 15:00 23:00 07:00 Intake Total 1230 ml 500 ml Output Total 1200 ml Balance 1230 ml -700 ml Exam PHYSICAL EXAMINATION: GENERAL: Elderly-appearing gentleman, appears comfortable at rest, no acute distress. VITAL SIGNS: As above NECK: Supple. No JVD or lymphadenopathy. CARDIAC: S1, S2, no added sounds or murmurs. CHEST: Diminished air entry bilaterally. ABDOMEN: Soft, nontender. No guarding or rebound. EXTREMITIES: No cyanosis, clubbing, or edema. NEUROLOGIC: Generalized weakness. Results/Medications Result Diagram: 01/01/17 0953 01/01/17 0953 Results 24 hrs Laboratory Tests Test 12/31/16 15:25 01/01/17 09:53 Prothrombin Time 20.2 H 16.8 H Prothrombin Time Ratio 1.6 1.3 INR International Normalized Ratio 1.71 1.36 White Blood Count 4.7 L Red Blood Count 6.24 H Hemoglobin 10.0 L Hematocrit 38.6 L Mean Corpuscular Volume 61.9 L Mean Corpuscular Hemoglobin 16.0 L Mean Corpuscular Hemoglobin Concent 25.9 L Red Cell Distribution Width 21.9 H Platelet Count 175 Mean Platelet Volume 9.1 Neutrophils % 61.2 Lymphocytes % 26.4 Monocytes % 11.0 Eosinophils % 0.8 Basophils % 0.2 Nucleated Red Blood Cells % 0.0 Neutrophils # 2.9 Lymphocytes # 1.3 Monocytes # 0.5 Eosinophils # 0.0 Basophils # 0.0 Nucleated Red Blood Cells # 0.0 Sodium Level 139 Potassium Level 3.9 Chloride Level 93 L Carbon Dioxide Level 36 H Anion Gap 14 Blood Urea Nitrogen 26 H Creatinine 1.08 Glucose Level 163 Calcium Level 8.9 Medications Current Medications Allopurinol (Zyloprim) 300 mg DAILY PO Last administered on 01/01/17 08:54; Admin Dose 300 MG; Start 12/31/16 at 09:00 Digoxin (Digoxin) 0.125 mg 13 PO Last administered on 12/31/16 14:45; Admin Dose 0.125 MG; Start 12/31/16 at 13:00 Fenofibrate (Tricor) 145 mg DAILY PO Last administered on 01/01/17 08:54; Admin Dose 145 MG; Start 12/31/16 at 09:00 Metoprolol Succinate (Toprol Xl) 50 mg DAILY PO Last administered on 01/01/17 08:57; Admin Dose 50 MG; Start 12/31/16 at 09:00 Fish Oil (Fish Oil) 2,000 mg BID PO Last administered on 01/01/17 08:54; Admin Dose 2,000 MG; Start 12/30/16 at 21:00 Atorvastatin Calcium (Lipitor) 10 mg DAILY@21 PO Last administered on 20:11; Admin Dose 10 MG; Start 12/30/16 at 21:00 Lorazepam (Ativan) 0.5 mg Q8H PRN PO ANXIETY Last administered on 12/31/16 22: 41; Admin Dose 0.5 MG; Start 12/30/16 at 16:30 Ondansetron HCl (Zofran Tab) 4 mg Q6H PRN PO NAUSEA AND/OR VOMITING; Start at 16:30 Nitroglycerin (Nitroglycerin (Sl Tab) 0.4 Mg) 1 tab Q5M PRN SL CHEST PAIN; Start 12/30/16 at 16:30 Acetaminophen (Tylenol Tab) 650 mg Q6H PRN PO PAIN LEVEL 1-3 OR FEVER; Start at 16:30 Morphine Sulfate (morphine) 1 mg Q4H PRN IV PAIN LEVEL 7-10; Start 12/30/16 at 16:30 Docusate Sodium (Colace) 100 mg Q12H PRN PO CONSTIPATION; Start 12/30/16 at 16: 30 Bisacodyl (Dulcolax) 5 mg DAILY PRN PO CONSTIPATION; Start 12/30/16 at 16:30 Pantoprazole (Protonix Tab) 40 mg DAILY@06 PO Last administered on 01/01/17 06 :03; Admin Dose 40 MG; Start 12/31/16 at 06:00 Enoxaparin Sodium 80 mg 80 mg BID SC Last administered on 01/01/17 09:05; Admin Dose 80 MG; Start 12/30/16 at 21:00 Ceftriaxone Sodium 50 ml @ 100 mls/hr Q24H IVPB Last administered on 17:54; Admin Dose 100 MLS/HR; Start 12/30/16 at 16:30 Levofloxacin/ Dextrose (Levaquin 500mg/ D5W 100 ml (Pmx)) 100 ml @ 100 mls/hr Q24H IVPB Last administered on 12/31/16 18:22; Admin Dose 100 MLS/HR; Start at 16:30 Thiamine HCl (Vitamin B1) 100 mg DAILY PO Last administered on 12/31/16 09:10 ; Admin Dose 100 MG; Start 12/31/16 at 09:00 Folic Acid (Folic Acid) 1 mg DAILY PO Last administered on 01/01/17 08:55; Admin Dose 1 MG; Start 12/31/16 at 09:00 Multivitamins Therapeutic (Theragran) 1 tab DAILY PO Last administered on 08:55; Admin Dose 1 TAB; Start 12/31/16 at 09:00 Salmeterol Xinafoate/ Fluticasone (Advair 250/50 Diskus) 1 inh BID INH Last administered on 01/01/17 08:53; Admin Dose 1 INH; Start 12/30/16 at 21:00 Amlodipine Besylate (Norvasc) 5 mg DAILY PO Last administered on 01/01/17 08: 57; Admin Dose 5 MG; Start 01/01/17 at 09:00 Benazepril HCl (Lotensin) 20 mg BID PO Last administered on 01/01/17 08:56; Admin Dose 20 MG; Start 12/31/16 at 21:00 Assessment/Plan Chief Complaint/Hosp Course IMPRESSION AND PLAN: A 71-year-old gentleman with an extensive alcohol history with large right pleural effusion, 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 1. Pending thoracentesis with pleural fluid studies 2. Continue current antibiotics of Rocephin and Levaquin. 3. Continued deep venous thrombosis and gastrointestinal prophylaxis. 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 5. Smoking cessation advised. 6. Will need advice on alcohol cessation. Problems: TYLOR ESCALANTE MD, [facility] Jan 01, 2017 12:46
--- NOTE | 2017-01-01 13:57 | PN ---
Date/Time of Note Date/Time of Note DATE: 01/01/17 TIME: 13:54 Assessment/Plan VTE Prophylaxis VTE Prophylaxis Intervention: other Lines/Catheters IV [facility]ter Type [facility] Saline Lock Urinary Cath still in place: No Assessment/Plan Chief Complaint/Hosp Course ASSESSMENT AND PLAN: 1. Shortness of breath likely secondary to chronic obstructive pulmonary disease exacerbation versus congestive heart failure exacerbation with a history of alcohol abuse. Improving status post diuretic, plan for thoracocentesis today 2. Congestive heart failure exacerbation. Cardiology has been consulted. This could be secondary to fluid overload. We will place the patient on IV Lasix. Follow cardiology recommendation. 3. Microcytic anemia. Start iron supplementation 4. Essential hypertension, well controlled on medical management. Continue benazepril. amlodipine, and metoprolol. 5. Atrial fibrillation, rate controlled on metoprolol and digoxin. At this time, we will hold Coumadin secondary thoracocentesis. Continue Lovenox. 6. Gout. Continue allopurinol. 7. Dyslipidemia. Continue statin. 8. Right-sided pleural effusion. Plan for right-sided thoracocentesis today 9. For history of alcoholism, education was provided. The patient has been started on folic acid, thiamine and multivitamin. We will continue to monitor patient closely. Further recommendations, management and treatment as per clinical course. Problems: Subjective 24 Hr Interval Summary Free Text/Dictation Patient continues to complain of having minor shortness of breath No nausea vomiting diarrhea N.p.o. secondary to upcoming procedure Plan for thoracocentesis today Exam/Review of Systems Vital Signs Vitals Vital Signs Date Time Temp Pulse Resp B/P Pulse Ox O2 Delivery O2 Flow Rate FiO2 01/01/17 12:20 71 01/01/17 12:03 2.0 01/01/17 11:51 98.0 19 170/79 90 12/31/16 20:37 Nasal Cannula Intake and Output 12/31/16 12/31/16 01/01/17 15:00 23:00 07:00 Intake Total 1230 ml 500 ml Output Total 1200 ml Balance 1230 ml -700 ml Exam General: The patient is well-developed, Not in acute distress. HEENT: Atraumatic, normocephalic. The pupils are equal and round . Neck: Supple with full range of motion. Chest: Normal expansion of the thorax during inspiration Lungs: Decreased breath sounds bilateral lower lung field, right greater than left Heart: Normal S1-S2, Regular rhythm and rate. Abdomen: Soft , nontender, nondistended , bowel sounds are present. Extremities: Normal to inspection, no edema no cyanosis Neurologic: Normal mental status,The patient is awake, alert and oriented . Results Result Diagram: 01/01/1753 01/01/17952 Results 24 hrs Laboratory Tests Test 12/31/16 15:25 01/01/17 09:53 Prothrombin Time 20.2 H 16.8 H Prothrombin Time Ratio 1.6 1.3 INR International Normalized Ratio 1.71 1.36 White Blood Count 4.7 L Red Blood Count 6.24 H Hemoglobin 10.0 L Hematocrit 38.6 L Mean Corpuscular Volume 61.9 L Mean Corpuscular Hemoglobin 16.0 L Mean Corpuscular Hemoglobin Concent 25.9 L Red Cell Distribution Width 21.9 H Platelet Count 175 Mean Platelet Volume 9.1 Neutrophils % 61.2 Lymphocytes % 26.4 Monocytes % 11.0 Eosinophils % 0.8 Basophils % 0.2 Nucleated Red Blood Cells % 0.0 Neutrophils # 2.9 Lymphocytes # 1.3 Monocytes # 0.5 Eosinophils # 0.0 Basophils # 0.0 Nucleated Red Blood Cells # 0.0 Sodium Level 139 Potassium Level 3.9 Chloride Level 93 L Carbon Dioxide Level 36 H Anion Gap 14 Blood Urea Nitrogen 26 H Creatinine 1.08 Glucose Level 163 Calcium Level 8.9 Medications Medications Current Medications Allopurinol (Zyloprim) 300 mg DAILY PO Last administered on 01/01/17 08:54; Admin Dose 300 MG; Start 12/31/16 at 09:00 Digoxin (Digoxin) 0.125 mg 13 PO Last administered on 01/01/17 12:45; Admin Dose 0.125 MG; Start 12/31/16 at 13:00 Fenofibrate (Tricor) 145 mg DAILY PO Last administered on 01/01/17 08:54; Admin Dose 145 MG; Start 12/31/16 at 09:00 Metoprolol Succinate (Toprol Xl) 50 mg DAILY PO Last administered on 01/01/17 08:57; Admin Dose 50 MG; Start 12/31/16 at 09:00 Fish Oil (Fish Oil) 2,000 mg BID PO Last administered on 01/01/17 08:54; Admin Dose 2,000 MG; Start 12/30/16 at 21:00 Atorvastatin Calcium (Lipitor) 10 mg DAILY@21 PO Last administered on 20:11; Admin Dose 10 MG; Start 12/30/16 at 21:00 Lorazepam (Ativan) 0.5 mg Q8H PRN PO ANXIETY Last administered on 12/31/16 22: 41; Admin Dose 0.5 MG; Start 12/30/16 at 16:30 Ondansetron HCl (Zofran Tab) 4 mg Q6H PRN PO NAUSEA AND/OR VOMITING; Start at 16:30 Nitroglycerin (Nitroglycerin (Sl Tab) 0.4 Mg) 1 tab Q5M PRN SL CHEST PAIN; Start 12/30/16 at 16:30 Acetaminophen (Tylenol Tab) 650 mg Q6H PRN PO PAIN LEVEL 1-3 OR FEVER; Start at 16:30 Morphine Sulfate (morphine) 1 mg Q4H PRN IV PAIN LEVEL 7-10; Start 12/30/16 at 16:30 Docusate Sodium (Colace) 100 mg Q12H PRN PO CONSTIPATION; Start 12/30/16 at 16: 30 Bisacodyl (Dulcolax) 5 mg DAILY PRN PO CONSTIPATION; Start 12/30/16 at 16:30 Pantoprazole (Protonix Tab) 40 mg DAILY@06 PO Last administered on 01/01/17 06 :03; Admin Dose 40 MG; Start 12/31/16 at 06:00 Enoxaparin Sodium 80 mg 80 mg BID SC Last administered on 01/01/17 09:05; Admin Dose 80 MG; Start 12/30/16 at 21:00 Ceftriaxone Sodium 50 ml @ 100 mls/hr Q24H IVPB Last administered on 17:54; Admin Dose 100 MLS/HR; Start 12/30/16 at 16:30 Levofloxacin/ Dextrose (Levaquin 500mg/ D5W 100 ml (Pmx)) 100 ml @ 100 mls/hr Q24H IVPB Last administered on 12/31/16 18:22; Admin Dose 100 MLS/HR; Start at 16:30 Thiamine HCl (Vitamin B1) 100 mg DAILY PO Last administered on 01/01/17 12:43 ; Admin Dose 100 MG; Start 12/31/16 at 09:00 Folic Acid (Folic Acid) 1 mg DAILY PO Last administered on 01/01/17 08:55; Admin Dose 1 MG; Start 12/31/16 at 09:00 Multivitamins Therapeutic (Theragran) 1 tab DAILY PO Last administered on 08:55; Admin Dose 1 TAB; Start 12/31/16 at 09:00 Salmeterol Xinafoate/ Fluticasone (Advair 250/50 Diskus) 1 inh BID INH Last administered on 01/01/17 08:53; Admin Dose 1 INH; Start 12/30/16 at 21:00 Amlodipine Besylate (Norvasc) 5 mg DAILY PO Last administered on 01/01/17 08: 57; Admin Dose 5 MG; Start 01/01/17 at 09:00 Benazepril HCl (Lotensin) 20 mg BID PO Last administered on 01/01/17 08:56; Admin Dose 20 MG; Start 12/31/16 at 21:00 EFE PULIDO MD Jan 01, 2017 13:57
[2017-01-01] MEDS ORDERED: LIDOCAINE 1% (MPF) 5 ML VIAL ONE (14:01)
--- NOTE | 2017-01-01 14:47 | RADRPT ---
PROCEDURE: US guided right thoracentesis. CLINICAL INDICATION: Shortness of breath. Right pleural effusion. TECHNIQUE: Prior to the procedure, informed consent was obtained. The risks, benefits, and alternatives were e xplained to the patient or the patient's family, including but not limited to bleeding, infection, p ain, visceral or vascular damage, shock, pneumothorax, chest tube placement, air embolism, and . The patient or the patient's family understood the risks and the alternatives and wished to proce ed with the study. Informed written consent was obtained. A procedural pause was performed. The patient's name, date of , and procedure to be performed were verified. Ultrasound of the right hemithorax was performed in the axial and sagittal planes. A right pleural e ffusion is noted. Utilizing ultrasound guidance, optimal location for entry to the pleural cavity wa s ascertained. The overlying skin was prepped and draped in the usual sterile fashion. Approximate ly 10 ml of 1% Xylocaine was injected locally for pain control. Using ultrasound guidance, a 5-Fren Yueh catheter was introduced into the right pleural space without difficulty. Fluid was aspirated . COMPARISON: None. FINDINGS: Initial ultrasound demonstrates fluid in the right pleural space. Approximately 1.670 liters of ser ous fluid was aspirated sent with the patient to the the patient's nurse Pb. IMPRESSION: 1. Satisfactory ultrasound-guided right thoracentesis. RPTAT: QQ .Jose Christian MD, Date Time Electronically viewed and signed by .Jose Christian MD, on 01/01/2017 14:47 .R/
--- NOTE | 2017-01-01 15:32 | RADRPT ---
PROCEDURE: XR Chest. CLINICAL INDICATION: Shortness of breath. Post thoracentesis TECHNIQUE: A single portable view of the chest was obtained. COMPARISON: 12/31/2016 FINDINGS: The aorta is tortuous and atherosclerotic. The cardiomediastinal silhouette is otherwise enlarged a nd is unchanged. A right pleural effusion has decreased in size. No definite radiographic evidence of a pneumothorax is seen. Mild to moderate residual right pleural effusion remains. The soft tiss ues and osseous structures demonstrate benign age related senescent changes. IMPRESSION: Decrease in size of a right pleural effusion with mild to moderate residual component. RPTAT: [facility] Physician Nannette Date Time Electronically viewed and signed by Physician Nannette on 01/01/2017 15:32 /
[2017-01-01] MEDS: CEFTRIAXONE 1 GM/50 ML (PMX) 50 ML IVPB SCH (16:04)
--- NOTE | 2017-01-01 16:07 | CONS ---
Date/Time of Note Date/Time of Note DATE: 01/01/17 TIME: 16:05 Assessment/Plan Assessment/Plan Additional Assessment/Plan Acute decompensated diastolic and valvular cardiomyopathy Preserved ejection fraction Mitral, tricuspid, aortic valve regurgitation Pleural effusion Liver cirrhosis Atrial fibrillation -Patient status post thoracentesis. Blood pressure remains elevated, change Lopressor to Coreg for better blood pressure control. Continue diuretics as blood pressure and renal function permits. Consultation Date/Type/Reason Admit Date/Time Dec 30, 2016 at 13:34 Initial Consult Date Type of Consultation: cv 24 HR Interval Summary Free Text/Dictation Shortness of breath is better, denies chest pain, palpitations Exam/Review of Systems Vital Signs Vitals Vital Signs Date Time Temp Pulse Resp B/P Pulse Ox O2 Delivery O2 Flow Rate FiO2 01/01/17 15:47 98.3 77 19 161/70 93 01/01/17 12:03 2.0 12/31/16 20:37 Nasal Cannula Intake and Output 12/31/16 12/31/16 01/01/17 15:00 23:00 07:00 Intake Total 1230 ml 500 ml Output Total 1200 ml Balance 1230 ml -700 ml Exam No apparent distress Constitutional: alert, oriented Head: normocephalic Respiratory: other (Coarse breath sounds bilaterally, mild scattered crackles, no wheezing) Cardiovascular: irregular rhythm, other (S1-S2 heard) Gastrointestinal: bowel sounds, non-tender, soft Extremities: edema Results Result Diagram: 01/01/17 0953 01/01/17 0953 Results 24 hrs Laboratory Tests Test 01/01/17 09:53 White Blood Count 4.7 L Red Blood Count 6.24 H Hemoglobin 10.0 L Hematocrit 38.6 L Mean Corpuscular Volume 61.9 L Mean Corpuscular Hemoglobin 16.0 L Mean Corpuscular Hemoglobin Concent 25.9 L Red Cell Distribution Width 21.9 H Platelet Count 175 Mean Platelet Volume 9.1 Neutrophils % 61.2 Lymphocytes % 26.4 Monocytes % 11.0 Eosinophils % 0.8 Basophils % 0.2 Nucleated Red Blood Cells % 0.0 Neutrophils # 2.9 Lymphocytes # 1.3 Monocytes # 0.5 Eosinophils # 0.0 Basophils # 0.0 Nucleated Red Blood Cells # 0.0 Prothrombin Time 16.8 H Prothrombin Time Ratio 1.3 INR International Normalized Ratio 1.36 Sodium Level 139 Potassium Level 3.9 Chloride Level 93 L Carbon Dioxide Level 36 H Anion Gap 14 Blood Urea Nitrogen 26 H Creatinine 1.08 Glucose Level 163 Calcium Level 8.9 Medications Medications Current Medications Allopurinol (Zyloprim) 300 mg DAILY PO Last administered on 01/01/17 08:54; Admin Dose 300 MG; Start 12/31/16 at 09:00 Digoxin (Digoxin) 0.125 mg 13 PO Last administered on 01/01/17 12:45; Admin Dose 0.125 MG; Start 12/31/16 at 13:00 Fenofibrate (Tricor) 145 mg DAILY PO Last administered on 01/01/17 08:54; Admin Dose 145 MG; Start 12/31/16 at 09:00 Metoprolol Succinate (Toprol Xl) 50 mg DAILY PO Last administered on 01/01/17 08:57; Admin Dose 50 MG; Start 12/31/16 at 09:00 Fish Oil (Fish Oil) 2,000 mg BID PO Last administered on 01/01/17 08:54; Admin Dose 2,000 MG; Start 12/30/16 at 21:00 Atorvastatin Calcium (Lipitor) 10 mg DAILY@21 PO Last administered on 20:11; Admin Dose 10 MG; Start 12/30/16 at 21:00 Lorazepam (Ativan) 0.5 mg Q8H PRN PO ANXIETY Last administered on 12/31/16 22: 41; Admin Dose 0.5 MG; Start 12/30/16 at 16:30 Ondansetron HCl (Zofran Tab) 4 mg Q6H PRN PO NAUSEA AND/OR VOMITING; Start at 16:30 Nitroglycerin (Nitroglycerin (Sl Tab) 0.4 Mg) 1 tab Q5M PRN SL CHEST PAIN; Start 12/30/16 at 16:30 Acetaminophen (Tylenol Tab) 650 mg Q6H PRN PO PAIN LEVEL 1-3 OR FEVER; Start at 16:30 Morphine Sulfate (morphine) 1 mg Q4H PRN IV PAIN LEVEL 7-10; Start 12/30/16 at 16:30 Docusate Sodium (Colace) 100 mg Q12H PRN PO CONSTIPATION; Start 12/30/16 at 16: 30 Bisacodyl (Dulcolax) 5 mg DAILY PRN PO CONSTIPATION; Start 12/30/16 at 16:30 Pantoprazole (Protonix Tab) 40 mg DAILY@06 PO Last administered on 01/01/17 06 :03; Admin Dose 40 MG; Start 12/31/16 at 06:00 Enoxaparin Sodium 80 mg 80 mg BID SC Last administered on 01/01/17 09:05; Admin Dose 80 MG; Start 12/30/16 at 21:00 Ceftriaxone Sodium 50 ml @ 100 mls/hr Q24H IVPB Last administered on 17:54; Admin Dose 100 MLS/HR; Start 12/30/16 at 16:30 Levofloxacin/ Dextrose (Levaquin 500mg/ D5W 100 ml (Pmx)) 100 ml @ 100 mls/hr Q24H IVPB Last administered on 12/31/16 18:22; Admin Dose 100 MLS/HR; Start at 16:30 Thiamine HCl (Vitamin B1) 100 mg DAILY PO Last administered on 01/01/17 12:43 ; Admin Dose 100 MG; Start 12/31/16 at 09:00 Folic Acid (Folic Acid) 1 mg DAILY PO Last administered on 01/01/17 08:55; Admin Dose 1 MG; Start 12/31/16 at 09:00 Multivitamins Therapeutic (Theragran) 1 tab DAILY PO Last administered on 08:55; Admin Dose 1 TAB; Start 12/31/16 at 09:00 Salmeterol Xinafoate/ Fluticasone (Advair 250/50 Diskus) 1 inh BID INH Last administered on 01/01/17 08:53; Admin Dose 1 INH; Start 12/30/16 at 21:00 Amlodipine Besylate (Norvasc) 5 mg DAILY PO Last administered on 01/01/17 08: 57; Admin Dose 5 MG; Start 01/01/17 at 09:00 Benazepril HCl (Lotensin) 20 mg BID PO Last administered on 01/01/17 08:56; Admin Dose 20 MG; Start 12/31/16 at 21:00 Pritesh Garcia DO Jan 01, 2017 16:07
[2017-01-01] MEDS: LEVOFLOXACIN 500MG/D5W (PMX) 100 ML IVPB SCH (16:45)
[2017-01-01 16:48] LABS: FLUID TYPE THORACENTESIS FLUID
[2017-01-01 16:49] LABS: FLUID TYPE THORACENTESIS FLUID
[2017-01-01 17:14] LABS: FLUID LD 192 U/L
[2017-01-01 17:15] LABS: FLUID GLUCOSE 152 mg/dl; FLUID TOTAL PROTEIN 2.6 g/dl
[2017-01-01 18:45] LABS: FLUID TYPE THORACENTHESIS
[2017-01-01 18:46] LABS: FLUID APPEARANCE CLOUDY; FLUID LYMPHOCYTES 82 %; FLUID MONOCYTES 8 %; FLUID NEUTROPHILS 10 %; FLUID RBC EST 2+; FLUID WBC'S 728 /cmm
[2017-01-01 18:47] LABS: FLUID BASOPHIL 0 %; FLUID EOSINOPHIL 0 %
[2017-01-01] MEDS: ATORVASTATIN 10 MG TAB PO SCH (21:53)
[2017-01-01] MEDS ORDERED: FLUTICASONE 0.05% 16 GM NAS SPRAY NASAL PRN ×2 (22:30→23:00)
[2017-01-02] VITALS (11 sets, daily range): BP systolic 106–165; BP diastolic 54–72; PULSE 50–67; RESP 18–20
[2017-01-02] MEDS: PANTOPRAZOLE (EC) 40 MG TAB PO SCH (05:47)
[2017-01-02] MEDS: FUROSEMIDE 40 MG INJ IV SCH ×2 (05:47→16:59)
[2017-01-02] MEDS: FOLIC ACID 1 MG TAB PO SCH (09:06)
[2017-01-02] MEDS: MULTIVITAMINS THERAPEUTIC TAB PO SCH (09:06)
[2017-01-02] MEDS: ALLOPURINOL 300 MG TAB PO SCH (09:06)
[2017-01-02] MEDS: SALMETEROL/FLUTICASONE 250/50 INHA INH SCH ×2 (09:06→21:33)
[2017-01-02] MEDS: FISH OIL 1,000 MG CAP PO SCH ×2 (09:06→21:32)
[2017-01-02] MEDS: THIAMINE 100 MG TAB PO SCH (09:06)
[2017-01-02] MEDS: FENOFIBRATE 145 MG TAB PO SCH (09:06)
[2017-01-02] MEDS: AMLODIPINE 5 MG TAB PO SCH (09:07)
[2017-01-02] MEDS: BENAZEPRIL 20 MG TAB PO SCH ×2 (09:07→21:33)
[2017-01-02] MEDS: ENOXAPARIN 40 MG/0.4 ML SYG SC SCH ×2 (09:08→21:39)
[2017-01-02 10:23] LABS: ADD SCAN DIFF NO
[2017-01-02 10:27] LABS: ABNORMAL IP MESSAGE 1; BASOPHILS % 0.2 % (0.0-2.0); EOSINOPHILS # 0.1 10^3/ul (0.0-0.5); EOSINOPHILS % 1.2 % (0.0-7.0); HEMATOCRIT 38.8 % (42.0-52.0); HEMOGLOBIN 10.4 g/dl (14.0-18.0); LYMPHOCYTES # 1.1 10^3/ul (0.8-2.9); LYMPHOCYTES % 26.8 % (15.0-51.0); MEAN CORPUSCULAR HEMOGLOBIN 16.5 pg (29.0-33.0); MEAN CORPUSCULAR HGB CONC 26.8 g/dl (32.0-37.0); MEAN CORPUSCULAR VOLUME 61.7 fl (82.0-101.0); MEAN PLATELET VOLUME 8.7 fl (7.4-10.4); MONOCYTE # 0.5 10^3/ul (0.3-0.9); NEUTROPHIL # 2.5 10^3/ul (1.6-7.5); NEUTROPHILS % 60.3 % (39.0-77.0); PLATELET COUNT 162 10^3/UL (140-415); RED BLOOD COUNT 6.29 10^6/ul (4.70-6.10); RED CELL DISTRIBUTION WIDTH 21.2 % (11.5-14.5); WHITE BLOOD COUNT 4.1 10^3/ul (4.8-10.8)
[2017-01-02 10:37] LABS: INR 1.38; PT RATIO 1.3
[2017-01-02 10:43] LABS: CREATININE 1.16 mg/dl (0.61-1.24)
[2017-01-02 10:44] LABS: CALCIUM 9.3 mg/dl (8.4-10.2)
--- NOTE | 2017-01-02 14:06 | CONS ---
Date/Time of Note Date/Time of Note DATE: 01/02/17 TIME: 14:03 Assessment/Plan Assessment/Plan Additional Assessment/Plan Acute decompensated diastolic and valvular cardiomyopathy Preserved ejection fraction Mitral, tricuspid, aortic valve regurgitation Pleural effusion Liver cirrhosis Atrial fibrillation -Respiratory status continues to improve. We will transition to p.o. diuretics in the next day if respiratory status continues to improve. Blood pressure trend remained stable as well as heart rate is controlled. If not plan for any further procedures, would restart oral anticoagulation. Consultation Date/Type/Reason Admit Date/Time Dec 30, 2016 at 13:34 Type of Consultation: cv 24 HR Interval Summary Free Text/Dictation Shortness of breath continues to improve. Denies chest pain Exam/Review of Systems Vital Signs Vitals Vital Signs Date Time Temp Pulse Resp B/P Pulse Ox O2 Delivery O2 Flow Rate FiO2 01/02/17 12:20 67 01/02/17 12:06 98.3 19 118/70 98 01/02/17 05:47 2.0 12/31/16 20:37 Nasal Cannula Intake and Output 01/01/17 01/01/17 01/02/17 14:59 22:59 06:59 Intake Total 200 ml 450 ml Output Total 500 ml 1450 ml 1050 ml Balance -500 ml -1250 ml -600 ml Exam No apparent distress Constitutional: alert, obese, oriented Head: normocephalic Respiratory: other (Coarse breath sounds bilaterally, decreased at the right base) Cardiovascular: irregular rhythm, other (S1-S2 heard) Gastrointestinal: bowel sounds, non-tender, soft Extremities: edema Results Result Diagram: 01/02/17 1010 01/02/17 1010 Results 24 hrs Laboratory Tests Test 01/02/17 10:10 White Blood Count 4.1 L Red Blood Count 6.29 H Hemoglobin 10.4 L Hematocrit 38.8 L Mean Corpuscular Volume 61.7 L Mean Corpuscular Hemoglobin 16.5 L Mean Corpuscular Hemoglobin Concent 26.8 L Red Cell Distribution Width 21.2 H Platelet Count 162 Mean Platelet Volume 8.7 Neutrophils % 60.3 Lymphocytes % 26.8 Monocytes % 11.0 Eosinophils % 1.2 Basophils % 0.2 Nucleated Red Blood Cells % 0.0 Neutrophils # 2.5 Lymphocytes # 1.1 Monocytes # 0.5 Eosinophils # 0.1 Basophils # 0.0 Nucleated Red Blood Cells # 0.0 Prothrombin Time 17.0 H Prothrombin Time Ratio 1.3 INR International Normalized Ratio 1.38 Sodium Level 138 Potassium Level 4.0 Chloride Level 91 L Carbon Dioxide Level 38 H Anion Gap 13 Blood Urea Nitrogen 24 H Creatinine 1.16 Glucose Level 175 Calcium Level 9.3 Medications Medications Current Medications Allopurinol (Zyloprim) 300 mg DAILY PO Last administered on 01/02/17 09:06; Admin Dose 300 MG; Start 12/31/16 at 09:00 Digoxin (Digoxin) 0.125 mg 13 PO Last administered on 01/01/17 12:45; Admin Dose 0.125 MG; Start 12/31/16 at 13:00 Fenofibrate (Tricor) 145 mg DAILY PO Last administered on 01/02/17 09:06; Admin Dose 145 MG; Start 12/31/16 at 09:00 Fish Oil (Fish Oil) 2,000 mg BID PO Last administered on 01/02/17 09:06; Admin Dose 2,000 MG; Start 12/30/16 at 21:00 Atorvastatin Calcium (Lipitor) 10 mg DAILY@21 PO Last administered on 21:53; Admin Dose 10 MG; Start 12/30/16 at 21:00 Lorazepam (Ativan) 0.5 mg Q8H PRN PO ANXIETY Last administered on 12/31/16 22: 41; Admin Dose 0.5 MG; Start 12/30/16 at 16:30 Ondansetron HCl (Zofran Tab) 4 mg Q6H PRN PO NAUSEA AND/OR VOMITING; Start at 16:30 Nitroglycerin (Nitroglycerin (Sl Tab) 0.4 Mg) 1 tab Q5M PRN SL CHEST PAIN; Start 12/30/16 at 16:30 Acetaminophen (Tylenol Tab) 650 mg Q6H PRN PO PAIN LEVEL 1-3 OR FEVER; Start at 16:30 Morphine Sulfate (morphine) 1 mg Q4H PRN IV PAIN LEVEL 7-10; Start 12/30/16 at 16:30 Docusate Sodium (Colace) 100 mg Q12H PRN PO CONSTIPATION; Start 12/30/16 at 16: 30 Bisacodyl (Dulcolax) 5 mg DAILY PRN PO CONSTIPATION; Start 12/30/16 at 16:30 Pantoprazole (Protonix Tab) 40 mg DAILY@06 PO Last administered on 01/02/17 05 :47; Admin Dose 40 MG; Start 12/31/16 at 06:00 Enoxaparin Sodium 80 mg 80 mg BID SC Last administered on 01/02/17 09:08; Admin Dose 80 MG; Start 12/30/16 at 21:00 Ceftriaxone Sodium 50 ml @ 100 mls/hr Q24H IVPB Last administered on 16:04; Admin Dose 100 MLS/HR; Start 12/30/16 at 16:30 Levofloxacin/ Dextrose (Levaquin 500mg/ D5W 100 ml (Pmx)) 100 ml @ 100 mls/hr Q24H IVPB Last administered on 01/01/17 16:45; Admin Dose 100 MLS/HR; Start at 16:30 Thiamine HCl (Vitamin B1) 100 mg DAILY PO Last administered on 01/02/17 09:06 ; Admin Dose 100 MG; Start 12/31/16 at 09:00 Folic Acid (Folic Acid) 1 mg DAILY PO Last administered on 01/02/17 09:06; Admin Dose 1 MG; Start 12/31/16 at 09:00 Multivitamins Therapeutic (Theragran) 1 tab DAILY PO Last administered on 09:06; Admin Dose 1 TAB; Start 12/31/16 at 09:00 Salmeterol Xinafoate/ Fluticasone (Advair 250/50 Diskus) 1 inh BID INH Last administered on 01/02/17 09:06; Admin Dose 1 INH; Start 12/30/16 at 21:00 Amlodipine Besylate (Norvasc) 5 mg DAILY PO Last administered on 01/02/17 09: 07; Admin Dose 5 MG; Start 01/01/17 at 09:00 Benazepril HCl (Lotensin) 20 mg BID PO Last administered on 01/02/17 09:07; Admin Dose 20 MG; Start 12/31/16 at 21:00 Carvedilol (Coreg) 6.25 mg BID PO Last administered on 01/02/17 09:07; Admin Dose 6.25 MG; Start 01/01/17 at 21:00 Fluticasone Propionate (Flonase 0.05% Nasal) 1 spray BID PRN NASAL NASAL CONGESTION Last administered on 01/02/17t 05:53; Admin Dose 1 SPRAY; Start 01/01 at 23:00 Pritesh Garcia DO Jan 02, 2017 14:05
[2017-01-02] MEDS: DIGOXIN 0.125 MG TAB PO SCH (14:15)
--- NOTE | 2017-01-02 14:46 | CONS ---
Date/Time of Note Date/Time of Note DATE: 01/02/17 TIME: 14:45 Consult Date/Type/Reason Admit Date/Time Dec 30, 2016 at 13:34 Type of Consultation: pulmonary Subjective Patient underwent thoracentesis with 1.6 L removed from the right lung, repeat chest x-ray shows mild to moderate persistent pleural effusion. Patient states his breathing has improved. Objective Vital Signs Date Time Temp Pulse Resp B/P Pulse Ox O2 Delivery O2 Flow Rate FiO2 01/02/17 12:20 67 01/02/17 12:06 98.3 19 118/70 98 01/02/17 05:47 2.0 12/31/16 20:37 Nasal Cannula Intake and Output 01/01/17 01/01/17 01/02/17 15:00 23:00 07:00 Intake Total 200 ml 450 ml Output Total 500 ml 1450 ml 1050 ml Balance -500 ml -1250 ml -600 ml Exam PHYSICAL EXAMINATION: GENERAL: Elderly-appearing gentleman, appears comfortable at rest, no acute distress. VITAL SIGNS: As above NECK: Supple. No JVD or lymphadenopathy. CARDIAC: S1, S2, no added sounds or murmurs. CHEST: Diminished air entry bilaterally. Right-sided greater than left ABDOMEN: Soft, nontender. No guarding or rebound. EXTREMITIES: No cyanosis, clubbing, or edema. NEUROLOGIC: Generalized weakness. Results/Medications Result Diagram: 01/02/17 1010 01/02/17 1010 Results 24 hrs Laboratory Tests Test 01/02/17 10:10 White Blood Count 4.1 L Red Blood Count 6.29 H Hemoglobin 10.4 L Hematocrit 38.8 L Mean Corpuscular Volume 61.7 L Mean Corpuscular Hemoglobin 16.5 L Mean Corpuscular Hemoglobin Concent 26.8 L Red Cell Distribution Width 21.2 H Platelet Count 162 Mean Platelet Volume 8.7 Neutrophils % 60.3 Lymphocytes % 26.8 Monocytes % 11.0 Eosinophils % 1.2 Basophils % 0.2 Nucleated Red Blood Cells % 0.0 Neutrophils # 2.5 Lymphocytes # 1.1 Monocytes # 0.5 Eosinophils # 0.1 Basophils # 0.0 Nucleated Red Blood Cells # 0.0 Prothrombin Time 17.0 H Prothrombin Time Ratio 1.3 INR International Normalized Ratio 1.38 Sodium Level 138 Potassium Level 4.0 Chloride Level 91 L Carbon Dioxide Level 38 H Anion Gap 13 Blood Urea Nitrogen 24 H Creatinine 1.16 Glucose Level 175 Calcium Level 9.3 Medications Current Medications Allopurinol (Zyloprim) 300 mg DAILY PO Last administered on 01/02/17 09:06; Admin Dose 300 MG; Start 12/31/16 at 09:00 Digoxin (Digoxin) 0.125 mg 13 PO Last administered on 01/02/17 14:15; Admin Dose 0.125 MG; Start 12/31/16 at 13:00 Fenofibrate (Tricor) 145 mg DAILY PO Last administered on 01/02/17 09:06; Admin Dose 145 MG; Start 12/31/16 at 09:00 Fish Oil (Fish Oil) 2,000 mg BID PO Last administered on 01/02/17 09:06; Admin Dose 2,000 MG; Start 12/30/16 at 21:00 Atorvastatin Calcium (Lipitor) 10 mg DAILY@21 PO Last administered on 21:53; Admin Dose 10 MG; Start 12/30/16 at 21:00 Lorazepam (Ativan) 0.5 mg Q8H PRN PO ANXIETY Last administered on 12/31/16 22: 41; Admin Dose 0.5 MG; Start 12/30/16 at 16:30 Ondansetron HCl (Zofran Tab) 4 mg Q6H PRN PO NAUSEA AND/OR VOMITING; Start at 16:30 Nitroglycerin (Nitroglycerin (Sl Tab) 0.4 Mg) 1 tab Q5M PRN SL CHEST PAIN; Start 12/30/16 at 16:30 Acetaminophen (Tylenol Tab) 650 mg Q6H PRN PO PAIN LEVEL 1-3 OR FEVER; Start at 16:30 Morphine Sulfate (morphine) 1 mg Q4H PRN IV PAIN LEVEL 7-10; Start 12/30/16 at 16:30 Docusate Sodium (Colace) 100 mg Q12H PRN PO CONSTIPATION; Start 12/30/16 at 16: 30 Bisacodyl (Dulcolax) 5 mg DAILY PRN PO CONSTIPATION; Start 12/30/16 at 16:30 Pantoprazole (Protonix Tab) 40 mg DAILY@06 PO Last administered on 01/02/17 05 :47; Admin Dose 40 MG; Start 12/31/16 at 06:00 Enoxaparin Sodium 80 mg 80 mg BID SC Last administered on 01/02/17 09:08; Admin Dose 80 MG; Start 12/30/16 at 21:00 Ceftriaxone Sodium 50 ml @ 100 mls/hr Q24H IVPB Last administered on 16:04; Admin Dose 100 MLS/HR; Start 12/30/16 at 16:30 Levofloxacin/ Dextrose (Levaquin 500mg/ D5W 100 ml (Pmx)) 100 ml @ 100 mls/hr Q24H IVPB Last administered on 01/01/17 16:45; Admin Dose 100 MLS/HR; Start at 16:30 Thiamine HCl (Vitamin B1) 100 mg DAILY PO Last administered on 01/02/17 09:06 ; Admin Dose 100 MG; Start 12/31/16 at 09:00 Folic Acid (Folic Acid) 1 mg DAILY PO Last administered on 01/02/17 09:06; Admin Dose 1 MG; Start 12/31/16 at 09:00 Multivitamins Therapeutic (Theragran) 1 tab DAILY PO Last administered on 09:06; Admin Dose 1 TAB; Start 12/31/16 at 09:00 Salmeterol Xinafoate/ Fluticasone (Advair 250/50 Diskus) 1 inh BID INH Last administered on 01/02/17 09:06; Admin Dose 1 INH; Start 12/30/16 at 21:00 Amlodipine Besylate (Norvasc) 5 mg DAILY PO Last administered on 01/02/17 09: 07; Admin Dose 5 MG; Start 01/01/17 at 09:00 Benazepril HCl (Lotensin) 20 mg BID PO Last administered on 01/02/17 09:07; Admin Dose 20 MG; Start 12/31/16 at 21:00 Carvedilol (Coreg) 6.25 mg BID PO Last administered on 01/02/17 09:07; Admin Dose 6.25 MG; Start 01/01/17 at 21:00 Fluticasone Propionate (Flonase 0.05% Nasal) 1 spray BID PRN NASAL NASAL CONGESTION Last administered on 01/02/17 05:53; Admin Dose 1 SPRAY; Start 01/01 at 23:00 Assessment/Plan Chief Complaint/Hosp Course IMPRESSION AND PLAN: A 71-year-old gentleman with an extensive alcohol history with large right pleural effusion, 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 1. Pending pleural fluid studies, may require repeat thoracentesis, I will repeat chest x-ray in a.m. 2. Continue current antibiotics of Rocephin and Levaquin. Consider de- escalation of antibiotics 3. Continued deep venous thrombosis and gastrointestinal prophylaxis. 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 5. Smoking cessation advised. 6. Will need advice on alcohol cessation. Problems: TYLOR ESCALANTE MD, [facility] Jan 02, 2017 14:46
[2017-01-02] MEDS: CEFTRIAXONE 1 GM/50 ML (PMX) 50 ML IVPB SCH (15:57)
[2017-01-02] MEDS: LEVOFLOXACIN 500MG/D5W (PMX) 100 ML IVPB SCH (15:58)
[2017-01-02] MEDS: ATORVASTATIN 10 MG TAB PO SCH (21:32)
[2017-01-03] VITALS (10 sets, daily range): BP systolic 124–145; BP diastolic 60–65; PULSE 53–70; RESP 18–20
[2017-01-03] MEDS: PANTOPRAZOLE (EC) 40 MG TAB PO SCH (05:35)
[2017-01-03] MEDS: FUROSEMIDE 40 MG TAB PO SCH ×2 (05:36→17:23)
[2017-01-03] MEDS: SALMETEROL/FLUTICASONE 250/50 INHA INH SCH ×2 (09:48→22:24)
[2017-01-03] MEDS: FISH OIL 1,000 MG CAP PO SCH ×2 (09:56→22:26)
[2017-01-03] MEDS: FOLIC ACID 1 MG TAB PO SCH (09:56)
[2017-01-03] MEDS: ALLOPURINOL 300 MG TAB PO SCH (09:56)
[2017-01-03] MEDS: BENAZEPRIL 20 MG TAB PO SCH ×2 (09:56→22:26)
[2017-01-03] MEDS: AMLODIPINE 5 MG TAB PO SCH (09:56)
[2017-01-03] MEDS: THIAMINE 100 MG TAB PO SCH (09:57)
[2017-01-03] MEDS: MULTIVITAMINS THERAPEUTIC TAB PO SCH (09:57)
[2017-01-03] MEDS: FENOFIBRATE 145 MG TAB PO SCH (09:57)
[2017-01-03] MEDS: ENOXAPARIN 40 MG/0.4 ML SYG SC SCH ×2 (10:03→22:25)
--- NOTE | 2017-01-03 10:43 | CONS ---
Date/Time of Note Date/Time of Note DATE: 01/03/17 TIME: 10:41 Assessment/Plan Assessment/Plan Additional Assessment/Plan Assessment recommendations; 1. Patient admitted with large right pleural effusion status post 1.6 L thoracentesis on the right side with marked clinical and radiological improvement. Possibly hepatic hydrothorax. 2. Cirrhosis. 3. History of gout and hypertension. Continue current treatment. Discontinue antibiotics. Currently no sign of any infective process. Consultation Date/Type/Reason Admit Date/Time Dec 30, 2016 at 13:34 Initial Consult Date Type of Consultation: pulmonary 24 HR Interval Summary Free Text/Dictation Patient condition is stable. Denies any shortness of breath, chest pain. Able to lay down flat in bed. Denies any fever, chills, abdominal pain, nausea vomiting. General exam; elderly male, awake alert currently in no distress. Exam/Review of Systems Vital Signs Vitals Vital Signs Date Time Temp Pulse Resp B/P Pulse Ox O2 Delivery O2 Flow Rate FiO2 01/03/17 08:07 61 01/03/17 03:38 98.4 18 124/60 97 01/02/17 19:36 2.0 12/31/16 20:37 Nasal Cannula Intake and Output 01/02/17 01/02/17 01/03/17 15:00 23:00 07:00 Intake Total 650 ml 750 ml Output Total 300 ml 1200 ml 950 ml Balance -300 ml -550 ml -200 ml Exam HEENT exam is; supple neck, no JVD. No lymphadenopathy. Midline trachea. No thyromegaly. Pharynx is clear. Chest examination; clear to auscultation. S1-S2 audible, no murmurs. Regular rhythm. Abdomen examination WA: Mildly protuberant. Nontender. No organomegaly. Bowel sounds audible. Extremity examination; no peripheral edema. Pulses 1+ bilaterally. OUTCOMES SPECIALIST examination; no focal deficit. Results Result Diagram: 01/02/17 1010 01/02/17 1010 Medications Medications Current Medications Allopurinol (Zyloprim) 300 mg DAILY PO Last administered on 01/03/17 09:56; Admin Dose 300 MG; Start 12/31/16 at 09:00 Digoxin (Digoxin) 0.125 mg 13 PO Last administered on 01/02/17 14:15; Admin Dose 0.125 MG; Start 12/31/16 at 13:00 Fenofibrate (Tricor) 145 mg DAILY PO Last administered on 01/03/17 09:57; Admin Dose 145 MG; Start 12/31/16 at 09:00 Fish Oil (Fish Oil) 2,000 mg BID PO Last administered on 01/03/17 09:56; Admin Dose 2,000 MG; Start 12/30/16 at 21:00 Atorvastatin Calcium (Lipitor) 10 mg DAILY@21 PO Last administered on 21:32; Admin Dose 10 MG; Start 12/30/16 at 21:00 Lorazepam (Ativan) 0.5 mg Q8H PRN PO ANXIETY Last administered on 12/31/16 22: 41; Admin Dose 0.5 MG; Start 12/30/16 at 16:30 Ondansetron HCl (Zofran Tab) 4 mg Q6H PRN PO NAUSEA AND/OR VOMITING; Start at 16:30 Nitroglycerin (Nitroglycerin (Sl Tab) 0.4 Mg) 1 tab Q5M PRN SL CHEST PAIN; Start 12/30/16 at 16:30 Acetaminophen (Tylenol Tab) 650 mg Q6H PRN PO PAIN LEVEL 1-3 OR FEVER; Start at 16:30 Morphine Sulfate (morphine) 1 mg Q4H PRN IV PAIN LEVEL 7-10; Start 12/30/16 at 16:30 Docusate Sodium (Colace) 100 mg Q12H PRN PO CONSTIPATION; Start 12/30/16 at 16: 30 Bisacodyl (Dulcolax) 5 mg DAILY PRN PO CONSTIPATION Last administered on 16:58; Admin Dose 5 MG; Start 12/30/16 at 16:30 Pantoprazole (Protonix Tab) 40 mg DAILY@06 PO Last administered on 01/03/17 05 :35; Admin Dose 40 MG; Start 12/31/16 at 06:00 Enoxaparin Sodium 80 mg 80 mg BID SC Last administered on 01/03/17 10:03; Admin Dose 80 MG; Start 12/30/16 at 21:00 Ceftriaxone Sodium 50 ml @ 100 mls/hr Q24H IVPB Last administered on 15:57; Admin Dose 100 MLS/HR; Start 12/30/16 at 16:30 Levofloxacin/ Dextrose (Levaquin 500mg/ D5W 100 ml (Pmx)) 100 ml @ 100 mls/hr Q24H IVPB Last administered on 01/02/17 15:58; Admin Dose 100 MLS/HR; Start at 16:30 Thiamine HCl (Vitamin B1) 100 mg DAILY PO Last administered on 01/03/17 09:57 ; Admin Dose 100 MG; Start 12/31/16 at 09:00 Folic Acid (Folic Acid) 1 mg DAILY PO Last administered on 01/03/17 09:56; Admin Dose 1 MG; Start 12/31/16 at 09:00 Multivitamins Therapeutic (Theragran) 1 tab DAILY PO Last administered on 09:57; Admin Dose 1 TAB; Start 12/31/16 at 09:00 Salmeterol Xinafoate/ Fluticasone (Advair 250/50 Diskus) 1 inh BID INH Last administered on 01/03/17 09:48; Admin Dose 1 INH; Start 12/30/16 at 21:00 Amlodipine Besylate (Norvasc) 5 mg DAILY PO Last administered on 01/03/17 09: 56; Admin Dose 5 MG; Start 01/01/17 at 09:00 Benazepril HCl (Lotensin) 20 mg BID PO Last administered on 01/03/17 09:56; Admin Dose 20 MG; Start 12/31/16 at 21:00 Carvedilol (Coreg) 6.25 mg BID PO Last administered on 01/03/17 09:57; Admin Dose 6.25 MG; Start 01/01/17 at 21:00 Fluticasone Propionate (Flonase 0.05% Nasal) 1 spray BID PRN NASAL NASAL CONGESTION Last administered on 01/02/17 05:53; Admin Dose 1 SPRAY; Start 01/01 at 23:00 TWIN MOSQUERA Jan 03, 2017 10:43
[2017-01-03 12:47] LABS: ADD SCAN DIFF NO
[2017-01-03] MEDS: DIGOXIN 0.125 MG TAB PO SCH (12:52)
[2017-01-03 12:57] LABS: ABNORMAL IP MESSAGE 1; BASOPHILS % 0.8 % (0.0-2.0); EOSINOPHILS # 0.1 10^3/ul (0.0-0.5); EOSINOPHILS % 1.6 % (0.0-7.0); LYMPHOCYTES # 1.3 10^3/ul (0.8-2.9); LYMPHOCYTES % 34.3 % (15.0-51.0); MEAN CORPUSCULAR HEMOGLOBIN 16.2 pg (29.0-33.0); MEAN CORPUSCULAR HGB CONC 26.3 g/dl (32.0-37.0); MEAN CORPUSCULAR VOLUME 61.4 fl (82.0-101.0); MONOCYTE # 0.5 10^3/ul (0.3-0.9); MONOCYTES % 13.4 % (0.0-11.0); NEUTROPHIL # 1.8 10^3/ul (1.6-7.5); NEUTROPHILS % 49.6 % (39.0-77.0); PLATELET COUNT 150 10^3/UL (140-415); RED BLOOD COUNT 6.19 10^6/ul (4.70-6.10); RED CELL DISTRIBUTION WIDTH 21.2 % (11.5-14.5); WHITE BLOOD COUNT 3.7 10^3/ul (4.8-10.8)
[2017-01-03 12:59] LABS: POTASSIUM 4.1 mmol/L (3.5-5.1)
[2017-01-03 13:01] LABS: INR 1.3; PROTIME 16.3 Sec (12.2-14.2); PT RATIO 1.3
[2017-01-03 13:02] LABS: CREATININE 1.29 mg/dl (0.61-1.24)
[2017-01-03 13:03] LABS: CALCIUM 9.4 mg/dl (8.4-10.2)
--- NOTE | 2017-01-03 15:23 | PN ---
DATE: 01/03/2017 CARDIOLOGY FOLLOWUP SUBJECTIVE: Discussed with the staff. Rhythm strip was reviewed. The patient remains in atrial fi brillation. Heart rate has remained stable. No reported chest pain or pressure. MEDICATIONS: Reviewed, which include: 1. Aldactone 50 b.i.d. 2. Lasix 40 p.o. b.i.d. 3. Coreg 6.25. 4. Amlodipine 5. 5. Benazepril 20 b.i.d. 6. Digoxin 0.125. 7. Tricor. 8. Folic acid. 9. Multivitamins. 10. Fish oil. 11. Lovenox 80. PHYSICAL EXAMINATION: VITAL SIGNS: Temperature 98, heart rate of 60, blood pressure of 138/64, respiratory rate of 18. HEENT: Normocephalic, atraumatic. Obese gentleman. Pupils equal and round. CARDIOVASCULAR: Irregularly irregular. Systolic murmur. PULMONARY: With no wheezes anteriorly, mild rhonchi at the bases. GASTROINTESTINAL: Obese, soft, nontender. EXTREMITIES: No significant lower extremity edema. PSYCHIATRIC: Appears to be calm, pleasant. NEUROLOGIC: Nonfocal. LABORATORY DATA: Sodium 136, potassium 4.1, BUN of 33, creatinine 1.29, glucose 143. WBC of 3.7, h emoglobin 10, platelet 150. INR is 1.3. ASSESSMENT AND PLAN: 1. Congestive heart failure secondary to diastolic dysfunction. 2. Pleural effusion 3. Valvular heart disease with mitral, aortic and tricuspid valve regurgitation. 4. History of cirrhosis. 5. Atrial fibrillation, chronic, on anticoagulation. RECOMMENDATIONS: The patient currently on Lovenox for anticoagulation. Consider addition of oral a nticoagulant if no other procedure is planned. Coreg will be continued. I will continue with oral Lasix for now. Labs will be checked tomorrow. I will hold the digoxin for now to avoid bradycardia and reassess again. Digoxin level will be checked tomorrow as well. Continue to monitor on teleme try. Dictated By: MAHNAZ SCOTT MD AV/ADEN Conf#: [id number] DID#: [id number] CC: EFE PULIDO MD;*EndCC*
--- NOTE | 2017-01-03 17:22 | PN ---
Date/Time of Note Date/Time of Note DATE: 01/03/17 TIME: 17:16 Assessment/Plan VTE Prophylaxis VTE Prophylaxis Intervention: LMWH Lines/Catheters IV C[facility]ter Type [facility]from [facility] Saline Lock Urinary Cath still in place: No Assessment/Plan Chief Complaint/Hosp Course 1. Shortness of breath likely secondary to chronic obstructive pulmonary disease exacerbation and hepatic hydrothorax status post thoracentesis -Patient still feels short of breath, monitor overnight 2. Cirrhosis secondary to alcohol abuse Continue Lasix and will add Aldactone Continue folic acid, thiamine and multivitamin. 3. Microcytic anemia. Continue iron supplementation 4. Essential hypertension, well controlled on medical management. Continue benazepril. amlodipine, and metoprolol. 5. Atrial fibrillation, rate controlled on metoprolol and digoxin -Resume Coumadin and continue Lovenox for now as INR is subtherapeutic 6. Gout. Continue allopurinol. 7. Dyslipidemia. Continue statin. Prophylaxis: Lovenox Problems: Subjective 24 Hr Interval Summary Respiratory: shortness of breath Exam/Review of Systems Vital Signs Vitals Vital Signs Date Time Temp Pulse Resp B/P Pulse Ox O2 Delivery O2 Flow Rate FiO2 01/03/17 16:12 53 01/03/17 12:30 98.0 18 138/64 97 Nasal Cannula 2.0 Intake and Output 01/02/17 01/02/17 01/03/17 15:00 23:00 07:00 Intake Total 650 ml 750 ml Output Total 300 ml 1200 ml 950 ml Balance -300 ml -550 ml -200 ml Exam Constitutional: alert Respiratory: clear to auscultation Cardiovascular: regular rate and rhythm Gastrointestinal: soft, No distended Musculoskeletal: nl extremities to inspection Results Result Diagram: 01/03/17 1228 01/03/17 1228 Results 24 hrs Laboratory Tests Test 01/03/17 12:28 White Blood Count 3.7 L Red Blood Count 6.19 H Hemoglobin 10.0 L Hematocrit 38.0 L Mean Corpuscular Volume 61.4 L Mean Corpuscular Hemoglobin 16.2 L Mean Corpuscular Hemoglobin Concent 26.3 L Red Cell Distribution Width 21.2 H Platelet Count 150 Mean Platelet Volume Neutrophils % 49.6 Lymphocytes % 34.3 Monocytes % 13.4 H Eosinophils % 1.6 Basophils % 0.8 Nucleated Red Blood Cells % 0.0 Neutrophils # 1.8 Lymphocytes # 1.3 Monocytes # 0.5 Eosinophils # 0.1 Basophils # 0.0 Nucleated Red Blood Cells # 0.0 Prothrombin Time 16.3 H Prothrombin Time Ratio 1.3 INR International Normalized Ratio 1.30 Sodium Level 136 Potassium Level 4.1 Chloride Level 90 L Carbon Dioxide Level 41 *H Anion Gap 9 Blood Urea Nitrogen 33 H Creatinine 1.29 H Glucose Level 143 Calcium Level 9.4 Medications Medications Current Medications Allopurinol (Zyloprim) 300 mg DAILY PO Last administered on 01/03/17 09:56; Admin Dose 300 MG; Start 12/31/16 at 09:00 Digoxin (Digoxin) 0.125 mg 13 PO Last administered on 01/03/17 12:52; Admin Dose 0.125 MG; Start 12/31/16 at 13:00; Status Future Hold Fenofibrate (Tricor) 145 mg DAILY PO Last administered on 01/03/17 09:57; Admin Dose 145 MG; Start 12/31/16 at 09:00 Fish Oil (Fish Oil) 2,000 mg BID PO Last administered on 01/03/17 09:56; Admin Dose 2,000 MG; Start 12/30/16 at 21:00 Atorvastatin Calcium (Lipitor) 10 mg DAILY@21 PO Last administered on 21:32; Admin Dose 10 MG; Start 12/30/16 at 21:00 Lorazepam (Ativan) 0.5 mg Q8H PRN PO ANXIETY Last administered on 12/31/16 22: 41; Admin Dose 0.5 MG; Start 12/30/16 at 16:30 Ondansetron HCl (Zofran Tab) 4 mg Q6H PRN PO NAUSEA AND/OR VOMITING; Start at 16:30 Nitroglycerin (Nitroglycerin (Sl Tab) 0.4 Mg) 1 tab Q5M PRN SL CHEST PAIN; Start 12/30/16 at 16:30 Acetaminophen (Tylenol Tab) 650 mg Q6H PRN PO PAIN LEVEL 1-3 OR FEVER; Start at 16:30 Morphine Sulfate (morphine) 1 mg Q4H PRN IV PAIN LEVEL 7-10; Start 12/30/16 at 16:30 Docusate Sodium (Colace) 100 mg Q12H PRN PO CONSTIPATION; Start 12/30/16 at 16: 30 Bisacodyl (Dulcolax) 5 mg DAILY PRN PO CONSTIPATION Last administered on 16:58; Admin Dose 5 MG; Start 12/30/16 at 16:30 Pantoprazole (Protonix Tab) 40 mg DAILY@06 PO Last administered on 01/03/17 05 :35; Admin Dose 40 MG; Start 12/31/16 at 06:00 Enoxaparin Sodium (Lovenox) 80 mg BID SC Last administered on 01/03/17 10:03; Admin Dose 80 MG; Start 12/30/16 at 21:00 Thiamine HCl (Vitamin B1) 100 mg DAILY PO Last administered on 01/03/17 09:57 ; Admin Dose 100 MG; Start 12/31/16 at 09:00 Folic Acid (Folic Acid) 1 mg DAILY PO Last administered on 01/03/17 09:56; Admin Dose 1 MG; Start 12/31/16 at 09:00 Multivitamins Therapeutic (Theragran) 1 tab DAILY PO Last administered on 09:57; Admin Dose 1 TAB; Start 12/31/16 at 09:00 Salmeterol Xinafoate/ Fluticasone (Advair 250/50 Diskus) 1 inh BID INH Last administered on 01/03/17 09:48; Admin Dose 1 INH; Start 12/30/16 at 21:00 Amlodipine Besylate (Norvasc) 5 mg DAILY PO Last administered on 01/03/17 09: 56; Admin Dose 5 MG; Start 01/01/17 at 09:00 Benazepril HCl (Lotensin) 20 mg BID PO Last administered on 01/03/17 09:56; Admin Dose 20 MG; Start 12/31/16 at 21:00 Carvedilol (Coreg) 6.25 mg BID PO Last administered on 01/03/17 09:57; Admin Dose 6.25 MG; Start 01/01/17 at 21:00 Fluticasone Propionate (Flonase 0.05% Nasal) 1 spray BID PRN NASAL NASAL CONGESTION Last administered on 01/02/17 05:53; Admin Dose 1 SPRAY; Start 01/01 at 23:00 SKYLA FINK Jan 03, 2017 17:22
[2017-01-03] MEDS: SPIRONOLACTONE 50 MG TAB PO SCH (17:23)
[2017-01-03] MEDS: WARFARIN 5 MG TAB PO SCH (17:33)
--- NOTE | 2017-01-03 19:39 | RADRPT ---
PROCEDURE: XR Chest. CLINICAL INDICATION: Shortness of breath. TECHNIQUE: Single frontal view. COMPARISON: 01/01/2017. FINDINGS: There is mild pulmonary edema, worse than seen previously. The lungs are otherwise clear. The heart is enlarged. There are moderate bilateral pleural effusions, unchanged. There is no pneumothorax. IMPRESSION: 1. Mild pulmonary edema, worse than seen previously. 2. No other change from 01/01/2017. RPTAT: QQ .Jose Christian MD, MD Date Time Electronically viewed and signed by .Jose Christian MD, MD on 01/03/2017 19:38 .R/
[2017-01-03] MEDS: ATORVASTATIN 10 MG TAB PO SCH (22:26)
[2017-01-04] VITALS (7 sets, daily range): BP systolic 108–138; BP diastolic 53–64; PULSE 53–59; RESP 17–18
[2017-01-04] MEDS: FUROSEMIDE 40 MG TAB PO SCH ×2 (06:40→17:43)
[2017-01-04] MEDS: SPIRONOLACTONE 50 MG TAB PO SCH ×2 (06:40→09:07)
[2017-01-04] MEDS: PANTOPRAZOLE (EC) 40 MG TAB PO SCH (06:40)
[2017-01-04 08:12] LABS: ALBUMIN 3.5 g/dl (3.3-4.9)
[2017-01-04 08:13] LABS: POTASSIUM 4.3 mmol/L (3.5-5.1)
[2017-01-04 08:14] LABS: INR 1.13; PROTIME 14.5 Sec (12.2-14.2); PT RATIO 1.1
[2017-01-04 08:15] LABS: ALBUMIN/GLOBULIN RATIO 1.29; BILIRUBIN,INDIRECT 0.3 mg/dl (0-1.1); BILIRUBIN,TOTAL 0.3 mg/dl (0.2-1.3); CREATININE 1.25 mg/dl (0.61-1.24); TOTAL PROTEIN 6.2 g/dl (6.1-8.1)
[2017-01-04 08:16] LABS: CALCIUM 9.2 mg/dl (8.4-10.2)
[2017-01-04 08:24] LABS: ADD SCAN DIFF NO
[2017-01-04 08:37] LABS: ABNORMAL IP MESSAGE 1; BASOPHILS % 0.5 % (0.0-2.0); EOSINOPHILS # 0.1 10^3/ul (0.0-0.5); EOSINOPHILS % 1.3 % (0.0-7.0); HEMATOCRIT 38.6 % (42.0-52.0); LYMPHOCYTES # 1.4 10^3/ul (0.8-2.9); LYMPHOCYTES % 35.2 % (15.0-51.0); MEAN CORPUSCULAR HGB CONC 25.9 g/dl (32.0-37.0); MEAN CORPUSCULAR VOLUME 61.7 fl (82.0-101.0); MONOCYTE # 0.5 10^3/ul (0.3-0.9); MONOCYTES % 11.3 % (0.0-11.0); NEUTROPHIL # 2.1 10^3/ul (1.6-7.5); NEUTROPHILS % 51.4 % (39.0-77.0); PLATELET COUNT 162 10^3/UL (140-415); RED BLOOD COUNT 6.26 10^6/ul (4.70-6.10); RED CELL DISTRIBUTION WIDTH 21.8 % (11.5-14.5)
[2017-01-04] MEDS: SALMETEROL/FLUTICASONE 250/50 INHA INH SCH (08:58)
[2017-01-04] MEDS: BENAZEPRIL 20 MG TAB PO SCH (09:06)
[2017-01-04] MEDS: FISH OIL 1,000 MG CAP PO SCH (09:07)
[2017-01-04] MEDS: AMLODIPINE 5 MG TAB PO SCH (09:07)
[2017-01-04] MEDS: MULTIVITAMINS THERAPEUTIC TAB PO SCH (09:07)
[2017-01-04] MEDS: FENOFIBRATE 145 MG TAB PO SCH (09:07)
[2017-01-04] MEDS: ALLOPURINOL 300 MG TAB PO SCH (09:07)
[2017-01-04] MEDS: FOLIC ACID 1 MG TAB PO SCH (09:08)
[2017-01-04] MEDS: ENOXAPARIN 40 MG/0.4 ML SYG SC SCH (09:17)
[2017-01-04] MEDS: THIAMINE 100 MG TAB PO SCH (09:20)
[2017-01-04 09:49] LABS: THYROID STIMULATING HORMONE 2.25 MIU/L (0.465-4.680)
--- NOTE | 2017-01-04 10:43 | PN ---
DATE: 01/04/2017 CARDIOLOGY FOLLOWUP SUBJECTIVE: Discussed with the staff. Rhythm strip was reviewed. The patient remains in atrial fi brillation. Heart rate has been on the low side but is stable. The patient denies any chest pain o r pressure to me. Breathing has improved now. MEDICATIONS: Reviewed. OBJECTIVE: VITAL SIGNS: Temperature 98.3, heart rate of 60, blood pressure 127/69, respiration rate of 18, sat urating 94%. HEENT: Normocephalic, atraumatic. Pupils equal and round. CARDIOVASCULAR: Irregularly irregular, systolic murmur. PULMONARY: With no wheezes heard. GASTROINTESTINAL: Soft, nontender. EXTREMITIES: With no significant lower extremity edema. NEUROLOGIC: Awake and alert. PSYCHIATRIC: Calm, pleasant. LABORATORY: Sodium 138, potassium 4.3, BUN of 36, creatinine 1.25, glucose of 103. Digoxin level i s 0.8. WBC of 4, hemoglobin 10.2, platelet 162. ASSESSMENT AND PLAN: 1. Congestive heart failure. 2. Diastolic dysfunction. 3. Pleural effusion. 4. Valvular heart disease. Mild mitral, aortic, and tricuspid insufficiency. 5. History of cirrhosis and liver disease. 6. Atrial fibrillation, chronic, on anticoagulation. RECOMMENDATIONS: Continue on current Lovenox ____ as advised per internal medicine. I held the dig oxin due to bradycardia. Continue with respiratory care and the rest of cardiac care. Dr. Jose aguilar follow the patient tomorrow. Dictated By: MAHNAZ SCOTT MD AV/ADEN Conf#: [id number] DID#: [id number] CC: SKYLA FINK MD;*End*
[2017-01-04] MEDS ORDERED: DOCU-216 PO (15:53)
--- NOTE | 2017-01-04 15:56 | PDOCDIS ---
Discharge Instructions CONDITION Patient Condition: Good HOME CARE INSTRUCTIONS: Diet Instructions: Reduced Sodium ACTIVITY: Activity Restrictions: Slowly Increase Activity FOLLOW UP/APPOINTMENTS Appointments F/U WITH YOUR PCP IN 1-2 WEEKS SKYLA FINK Jan 04, 2017 15:55
[2017-01-04] MEDS: WARFARIN 5 MG TAB PO SCH (17:43)
--- NOTE | 2017-01-04 18:29 | DS ---
DATE OF ADMISSION: 12/30/2016 DATE OF DISCHARGE: 01/04/2017 DISCHARGE DIAGNOSES: 1. Acute respiratory distress secondary to pulmonary edema from hepatic hydrothorax, as well as chr onic obstructive pulmonary disease exacerbation, status post thoracentesis. Continue home O2. 2. Cirrhosis secondary to alcohol abuse. Continue home Lasix and Aldactone. 3. Anemia secondary to liver disease. 4. Hypertension. Continue home medications. 5. Atrial fibrillation, rate controlled. Continue metoprolol and digoxin as well as Coumadin. 6. Gout. Continue allopurinol. 7. Dyslipidemia. Continue statin. HOSPITAL COURSE: The patient is a 71-year-old male with history of alcohol-related cirrhosis, CHF, hypertension, gout, atrial fibrillation, dyslipidemia, as well as COPD. The patient presents with s hortness of breath felt to be secondary to chronic obstructive pulmonary disease exacerbation as wel l as a large right-sided pleural effusion. Since the patient has a history of cirrhosis, but likely hepatic hydrothorax. The patient was seen by cardiology as well as pulmonology. The patient did r eceive a thoracentesis on the right side with 1.6 liters removed from the right lung. The patient d oes use home O2 and has Advair home. The patient was felt to be back to his baseline status. On day of discharge, the patient's vitals, labs, physical exam were stable. He had no acute complain ts. Questions were answered. CONDITION ON DISCHARGE: Stable. DISPOSITION: To home. MEDICATIONS: 1. The patient is to continue his usual home medications. 2. The patient was given a prescription for Colace 100 mg p.o. b.i.d. p.r.n. for constipation. 3. The patient is to continue his home O2 as well. FOLLOWUP: The patient is to follow up with PCP in 1 to 2 weeks. Greater than 30 minutes was spent in coordinating the discharge of patient. Dictated By: SKYLA FINK MD BS/NTS Conf#: [id number] DID#: [id number] CC: EFE PULIDO MD;*EndCC*
== END 2017-01-04 18:00 | disposition home or self-care (01) | DRG 186 ==
LOC: E/R 10:26 → PP2 13:34 → MS4 12-31 19:34
PROVIDERS: ADMIT Family Medicine; ATTEND Family Medicine
PROC: 0W993ZZ Drainage of Right Pleural Cavity, Percutaneous Approach (ICD-10-PCS; principal; 2017-01-01)
DX: J94.8 Other specified pleural conditions (principal); I50.33 Acute on chronic diastolic (congestive) heart failure; D68.9 Coagulation defect, unspecified; J44.1 Chronic obstructive pulmonary disease with (acute) exacerbation; K70.30 Alcoholic cirrhosis of liver without ascites; F10.20 Alcohol dependence, uncomplicated; D50.9 Iron deficiency anemia, unspecified; E78.5 Hyperlipidemia, unspecified; I11.0 Hypertensive heart disease with heart failure; Z79.01 Long term (current) use of anticoagulants; M10.9 Gout, unspecified; F17.200 Nicotine dependence, unspecified, uncomplicated
CPT/HCPCS: 32555; 36415; 36430; 71010; 80048; 80053; 80162; 82550; 82553; 82728; 82945; 82962; 83540; 83615; 83735; 83880; 84157; 84443; 84484; 85025; 85610; 85730; 86850; 86900; 86901; 87070; 87102; 87116; 89050; 93005; 94640; 94664; 96374; J1940; J0696; J1650; J1956; P9059

== ENCOUNTER 2017-04-04 11:50 | Inpatient (IN) | END 2017-04-24 18:35 | DRG 291 | DX: I11.0 Hypertensive heart disease with heart failure (principal); J18.9 Pneumonia, unspecified organism; J69.0 Pneumonitis due to inhalation of food and vomit; J96.21 Acute and chronic respiratory failure with hypoxia; N17.9 Acute kidney failure, unspecified; G93.41 Metabolic encephalopathy; G92 Toxic encephalopathy; J96.22 Acute and chronic respiratory failure with hypercapnia; J90 Pleural effusion, not elsewhere classified; J44.0 Chronic obstructive pulmonary disease with (acute) lower respiratory infection; F10.239 Alcohol dependence with withdrawal, unspecified; I82.612 Acute embolism and thrombosis of superficial veins of left upper extremity; J98.11 Atelectasis; E87.4 Mixed disorder of acid-base balance; I50.33 Acute on chronic diastolic (congestive) heart failure; K70.31 Alcoholic cirrhosis of liver with ascites; K70.40 Alcoholic hepatic failure without coma; E11.8 Type 2 diabetes mellitus with unspecified complications; D63.8 Anemia in other chronic diseases classified elsewhere; E78.5 Hyperlipidemia, unspecified; D50.9 Iron deficiency anemia, unspecified; D72.819 Decreased white blood cell count, unspecified; M10.9 Gout, unspecified; Z79.02 Long term (current) use of antithrombotics/antiplatelets; Z72.89 Other problems related to lifestyle; I35.1 Nonrheumatic aortic (valve) insufficiency; I34.0 Nonrheumatic mitral (valve) insufficiency; I36.1 Nonrheumatic tricuspid (valve) insufficiency; E16.2 Hypoglycemia, unspecified; I42.9 Cardiomyopathy, unspecified ==